=== PATIENT | male | born 1965 | race Caucasian/White ===

== ENCOUNTER 2022-12-01 09:35 | Observation (INO) ==
--- NOTE | 2022-11-27 13:58 | Anesthesiology Consultation ---
Date of Service November 27, 2022 Assessment & Plan (1) Encounter for pre-operative examination: - ER [facility] 11/24/22: "...evaluation of right knee pain. 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 He fell down when this occurred...X-ray revealed a tibial plateau fracture. CT was then ordered for further evaluation of this. Patient placed in a knee immobilizer and instructed the use of crutches..." - Per card mounter on 11/27/2022: No known infectious disease contacts, current infectious disease symptoms in past 10 days or COVID positive test result in the past 90 days. Chart Review Chart Review: Acceptable Risk for Surgery and Patient NOT seen in Pre Admission Testing History Surgery Operation Date: 12/01/22 11:30 Proposed Procedures p Open Reduction Internal Fixation of Right Tibial Plateau - Ralph Pérez MD Height/Weight Height: 5 ft 6.6 in Weight: 86.183 kg Allergies Allergy/AdvReac Type Severity Reaction Status Date / Time No Known Allergies Allergy Unverified 11/27/22 09:27 Medications Home Medications Medication Instructions Recorded Confirmed Last Taken candesartan 8 mg tablet 8 mg PO QAM 11/24/22 11/27/22 11/24/22 oxycodone-acetaminophen 5 mg-325 1 tab PO Q4H PRN pain #15 tabs 11/24/22 11/27/22 Unknown mg tablet (Percocet) rosuvastatin 10 mg tablet 10 mg PO QPM 11/24/22 11/27/22 11/23/22 oxycodone 5 mg tablet 5 - 10 mg PO Q6 PRN pain #40 tabs 11/26/22 11/27/22 Unknown Past Medical History Medical History History of anesthesia reaction "The spinal didn't work" -- ORIF LLE . HLD (hyperlipidemia) HTN (hypertension) Sleep apnea CPAP Past Surgical History Surgical History History of colonoscopy History of open reduction and internal fixation (ORIF) procedure LLE History of removal of retained hardware History of wisdom tooth extraction Social History Smoking Status: Never smoker Do You Dip or Chew Tobacco: No Hx Alcohol Use: Yes alcohol intake frequency: holidays/special occasions only Hx Substance Use: No substance use type: does not use Lab Results Anesthesia Preop Results Results Anesthesia Widget: WBC 5.29 K/ul (4.8-10.8) 11/27/22 Hgb 16.4 g/dl (14.0-18.0) 11/27/22 Hct 50.5 % (42.0-52.0) 11/27/22 Plt 195 K/uL (130-400) 11/27/22 Na 140 mmol/L (136-145) 11/27/22 K 3.9 mmol/L (3.5-5.1) 11/27/22 Cl 103 mmol/L (98-107) 11/27/22 CO2 31 mmol/L (21-32) 11/27/22 BUN 16 mg/dl (6-23) 11/27/22 Creat 0.98 mg/dl (0.6-1.4) 11/27/22 Glucose Level 144 mg/dl (70-99(Fasting)) H 11/27/22 Testing Electrocardiogram Date: 11/27/22 NSR, rate 93 bpm
[~2022-12-01 09:35] MED LIST: ACETAMINOPHEN 500 MG TAB PO SCH; BUPIVACAINE 0.5 % 5 MG/1 ML MPF 30ML VIAL ONE; EPINEPHrine INJ 1 MG/ML AMP ONE; FAMOTIDINE 20 MG TAB PO SCH; LR 15ML/HR IV SCH; LR 60ML/HR IV SCH; TRANEXAMIC ACID 1,000 MG **IV Intra-op IV SCH; ceFAZolin 2000MG 2,000 MG/15 ML SYR IV SCH; dexAMETHasone**PF** 10 MG/ML VIAL IV SCH
--- NOTE | 2022-12-01 11:01 | History & Physical Bridge Note ---
Date of Service December 01, 2022 History & Physical Bridge Note I have examined the patient, reviewed the History & Physical and in the interval since the performance of the History & Physical I have noted the following changes of clinical significance: no changes noted
[2022-12-01] MEDS ORDERED: fentaNYL citrate PF 100 MCG/2 ML VIAL ONE (11:28)
[2022-12-01] MEDS ORDERED: MIDAZOLAM HCL 1 MG/ML 2ML VIAL ONE (11:28)
[2022-12-01] MEDS ORDERED: BUPIVACAINE 0.5 % 5 MG/1 ML PF 10ML VIAL ONE (11:46)
[2022-12-01] MEDS ORDERED: BUPIVACAINE/EPINEPHRINE 0.5% MPF 1:200,000 30 ML VIAL ONE (11:59)
[2022-12-01] MEDS ORDERED: PROPOFOL IV EMULSION 10 MG/ML 20 ML VIAL IV ONE (13:15)
[2022-12-01] MEDS ORDERED: NALOXONE HCL 0.4 MG/1 ML VIAL/CARP IV PRN ×2 (14:02→15:47)
[2022-12-01] MEDS ORDERED: ONDANSETRON INJ 2 MG/ML 2 ML VIAL IV PRN ×2 (14:02→15:47)
[2022-12-01] MEDS ORDERED: ATROPINE SULFATE 0.1 MG/ML 10ML SYR IV PRN (14:02)
[2022-12-01] MEDS ORDERED: FLUMAZENIL 0.1 MG/1 ML 10 ML VIAL IV PRN (14:02)
[2022-12-01] MEDS ORDERED: ePHEDrine sulfate 50 MG/ML AMP IV PRN (14:02)
[2022-12-01] MEDS ORDERED: PROMETHAZINE HCL 12.5 MG in SODIUM CHLORIDE 0.9% 50 ML IV PRN (14:02)
[2022-12-01] MEDS ORDERED: HYDROmorphone INJ 1 MG/ML SYRINGE IV PRN (14:02)
[2022-12-01] MEDS ORDERED: LABETALOL HCL IV 5 MG/ML 20ML IV PRN (14:02)
--- NOTE | 2022-12-01 15:02 | Operative Report ---
PG Post Operative Report Pre & Post Diagnosis Operation Date: 12/01/22 11:30 Pre-Op Diagnosis: Right Schatzker 2 lateral tibial Plateau Fracture Post-Op Diagnosis: Right Schatzker 2 lateral tibial Plateau Fracture I identified the patient and participated in the time-out.: Yes Procedure Operation Date: 12/01/22 11:30 Actual Procedures p Open Reduction Internal Fixation of Right Tibial Plateau Fracture(Right) - Ralph Pérez MD Surgeon Ralph Pérez MD Roller Printer Nicola Melton PA-C Estimated Blood Loss 100 Findings Consistent with Post-Op Diagnosis Specimens None Anesthesia Type Spinal MAC Complications none Disposition Accompanied Patient To Recovery: No Indications 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 He sustained a markedly depressed the lateral split depression tibial plateau fracture. This is indicated for surgical management. Description of Procedure Operative implants consist of: 1. Synthes right 3.5 variable angle locking plate with a 6-hole shaft, 6-hole head. 2. 3.5 partially-threaded conical screws x3. 3. 3.5 cortical screws x4. 4. 3.5 variable angle locking screws x3. 5. Cancellous chips/allograft chips. The patient was taken to the operating, identified, and placed on the operating table supine position. All contractors were properly padded. IV antibiotics tried by anesthesia team. A spinal anesthetic and been implemented holding area. A right thigh turn was then placed. The right lower extremities then prepped and draped in usual sterile fashion. The right leg was elevated exsanguinated with use of an Esmarch and the tourniquet was set at 300 mmHg. An anterior lateral approach to the tibia was then performed through a curvilinear incision over the anterior lateral crest of the tibia extending up over the knee joint to right above the joint line and then angling posteriorly at about a 90 degree angle. Sharp dissection was carried through subcutaneous tissues directly through the IT band approximately in the anterior compartment fascia more distally. The anterior compartment muscles were stripped off the anterior aspect of the tibia in a subperiosteal fashion. The IT band was dissected down to expose the joint line. A submeniscal arthrotomy was then created. I did place some traction stitches in the lateral meniscus with #1 Vicryl sutures. I was able to look up into the joint quite nicely. The fracture was fairly displaced laterally was able to open this up. I then used a bone tamp to get reduced the articular surface and subchondral bone. I then placed some cancellous bone chips underneath these fragments to hold and then closed the lateral cortical fracture fragment. This was verified fluoroscopically. We had excellent bone support. I then held this with a couple K wires. I then took a Synthes anterolateral tibial periarticular locking plate. I fixed it through the oblong hole just below the joint line to support the surface. It was fixed with a single cortical screw and then 2 partially-threaded conical screws proximally followed by a additional locking screw and an additional fully threaded conical lag screw. I then placed 3 cortical screws and distally and then provided to cortical locking screws in the proximal segment of the plate closure of the joint surface. 1 of these was a acute standard kind of screw. Some final x-rays were obtained. The fracture was nicely reduced. I felt it was good as was a job we could do with excellent bony support. The knee was stable to testing. We irrigated the wound. I then repaired the lateral meniscus back to the holes in the plate with the #1 Vicryl sutures. The knee was injected with 30 cc of half percent Marcaine with epinephrine. I did let the tourniquet down for tourniquet time 81 minutes for hemostasis surgeries electrocautery. The wounds once again irrigated. The deep fascia and the IT band was then closed with 0 Vicryl suture in a [id number]-ptaeo fashion. Subcutaneous tissues then closed with 2 Dexon suture in buried knot fashion the skin was closed with 3-0 nylon suture in simple fashion. Leg was then cleaned and dried a sterile dressing was Xeroform, 4 fours, sterile cast padding Alberto bandage, knee immobilizer applied. The patient then transferred to the recovery room in stable condition. The patient tolerated procedure well and there were no complications. Nicola Melton, physician student assistant, was present for the entire procedure. His assistance was required for proper patient positioning, prepping and draping, surgical exposure, retraction, perform the technical details the operation, placement of hardware, closure of the incision site and placement of sterile bandage. I attest to the content of the Intraoperative Record and any orders documented therein. Any exceptions are noted below.
--- NOTE | 2022-12-01 15:15 | Anesthesiology Progress Note ---
Date of Service December 01, 2022 Anesthesia Post Procedure Vital Signs Vital Signs: Temp Pulse Resp BP Pulse Ox O2 Del Method O2 Flow Rate 12/01/22 15:10 36.1 C L 70 17 136/82 94 Oxymask 5 12/01/22 15:00 81 17 133/85 94 Oxymask 5 12/01/22 14:50 83 17 123/77 94 Oxymask 5 12/01/22 14:42 36.1 C L 88 17 123/77 96 Oxymask 5 12/01/22 10:16 36.7 C 83 20 137/87 96 Room Air Pain Intensity Right Leg: Pain Intensity: 3 Transfer of Care Handoff Completed per policy Notes Mental Status: alert / awake / arousable Patient Amnestic to Procedure: Yes Nausea / Vomiting: adequately controlled Pain: adequately controlled Airway Patency, RR, SpO2: stable & adequate BP & HR: stable & adequate Hydration State: stable & adequate Neuraxial Anesthesia: was administered and sensory block is resolving Anesthetic Complications: no major complications apparent
[2022-12-01] MEDS ORDERED: bisacodyL 10 MG SUPP PR PRN (15:47)
[2022-12-01] MEDS ORDERED: oxyCODONE HCL IR 5 MG TAB (IMMEDIATE RELEASE) PO PRN (15:47)
[2022-12-01] MEDS ORDERED: HYDROmorphone INJ 0.5 MG/0.5 ML SYR IV PRN (15:47)
[2022-12-01] MEDS ORDERED: METOCLOPRAMIDE HCL INJ 5 MG/ML 2 ML VIAL IV PRN (15:47)
[2022-12-01] MEDS ORDERED: MAGNESIUM HYDROXIDE SUSP 30 ML UDC PO PRN (15:47)
[2022-12-01] MEDS ORDERED: ALUMINUM/MAGNESIUM SUSP 30 ML UDC PO PRN (15:47)
[2022-12-01] MEDS ORDERED: TAMSULOSIN HCL 0.4 MG CAP PO PRN (15:47)
--- NOTE | 2022-12-01 16:18 | Fluoroscopy Report ---
FL knee RT 1 or 2V CLINICAL HISTORY: ORIF RIGHT TIBIAL PLATEAU COMPARISON STUDY: Right knee radiographs and CT of the right knee November 24, 2022. FLUOROSCOPY TIME: 49 seconds. Ka, r: 2.70 mGy FLUOROSCOPIC IMAGES: 3 FINDINGS: Fluoroscopy was provided during open reduction and internal fixation of the right lateral t ibial plateau fracture. Fracture alignment has significantly improved and appears near anatomic. Plat e and screw fixation is noted. Hardware is intact. IMPRESSION: Fluoroscopy provided during open reduction and internal fixation of the right lateral ti bial plateau fracture. ACT 112: Negative or not required by law. Electronically signed by: Ras Brown M.D. 12/01/2022 4:17 PM
[2022-12-01] MEDS: KETOROLAC 30 MG/ML VIAL IV SCH ×2 (16:22→21:02)
[2022-12-01] MEDS: SODIUM CHLORIDE 0.9% 1000ML 1,000 ML IV SCH (16:23)
[2022-12-01] MEDS: ASCORBIC ACID 500 MG TAB PO SCH (16:27)
[2022-12-01] MEDS: oxyCODONE HCL IR 5 MG TAB (IMMEDIATE RELEASE) PO PRN (20:58)
[2022-12-01] MEDS: ACETAMINOPHEN 500 MG TAB PO SCH (21:00)
[2022-12-01] MEDS ORDERED: SENNA 8.6 MG TAB PO SCH (21:00)
[2022-12-01] MEDS ORDERED: ROSUVASTATIN CALCIUM 10 MG TAB PO SCH (21:00)
[2022-12-01] MEDS: ASPIRIN 81 MG ECTAB PO SCH (21:01)
[2022-12-01] MEDS: DOCUSATE SODIUM 100 MG CAP PO SCH (21:02)
[2022-12-01] MEDS: ceFAZolin 2000MG 2,000 MG/15 ML SYR IV SCH (21:44)
[2022-12-02] MEDS: SODIUM CHLORIDE 0.9% 1000ML 1,000 ML IV SCH (02:17)
[2022-12-02] MEDS: ceFAZolin 2000MG 2,000 MG/15 ML SYR IV SCH (04:47)
[2022-12-02] MEDS: KETOROLAC 30 MG/ML VIAL IV SCH ×2 (04:47→09:25)
[2022-12-02] MEDS: oxyCODONE HCL IR 5 MG TAB (IMMEDIATE RELEASE) PO PRN (04:49)
[2022-12-02] MEDS: ACETAMINOPHEN 500 MG TAB PO SCH ×2 (04:55→11:43)
--- NOTE | 2022-12-02 07:10 | Orthopedic Progress Note ---
Date of Service December 02, 2022 Assessment & Plan (1) Fracture of tibial plateau: POD #1 s/p ORIF of tibia plateau fracture, with peroneal nerve palsy. Will discuss with Dr. Pérez today. PT/OT: Nonweight bearing RLE. Continue knee immobilizer at all times. No knee range of motion DVT prophylaxis: teds, scd's, aspirin. Subjective . 57 year old patient POD #1 from ORIF right lateral tibia plateau fracture. Knee pain is controlled. He has been having some diminished sensation in the right foot and inability to dorsiflex. This has been ongoing since surgery. No other complaints. Review of Systems All systems reviewed & are unremarkable except as noted in HPI & below. Physical Exam . alert and oriented. NAD VSS Right leg: moderate swelling around knee and lower leg. Able to do a straight leg raise. Dressing clean, dry and intact. Dressing does not feel too tight. Able to plantarflex and move his toes some. Palpable dorsalis pedic pulse. Brisk refill. Diminished sensation in foot. Unable to dorsiflex foot or great toe. Results & Data Results & Data Laboratory Results . Diagnostic Findings . PG Care Time/CCT Total # of Minutes Spent Total Time Spent with Patient: Total time spent is greater than 50% in coordination of care (as documented) at patient's floor/unit and/or counseling patient: Coding Level of Care Code 06569 Post Operative Follow-Up Diagnoses Fracture of tibial plateau S82.141A Encounter type: initial encounter Fracture type: closed Laterality: right (1) Fracture of tibial plateau Encounter type: initial encounter Fracture type: closed Laterality: right Qualified Code(s): S82.141A - Displaced bicondylar fracture of right tibia, initial encounter for closed fracture
[2022-12-02] MEDS ORDERED: MULTIVITAMIN TAB PO SCH (09:00)
[2022-12-02] MEDS ORDERED: LOSARTAN POTASSIUM 25 MG TAB PO SCH (09:00)
[2022-12-02] MEDS: ASCORBIC ACID 500 MG TAB PO SCH (09:21)
[2022-12-02] MEDS: DOCUSATE SODIUM 100 MG CAP PO SCH (09:22)
[2022-12-02] MEDS: ASPIRIN 81 MG ECTAB PO SCH (09:22)
--- NOTE | 2022-12-02 11:43 | Orthopedic Progress Note ---
Date of Service December 02, 2022 Assessment & Plan (1) Fracture of tibial plateau: Patient is postoperative day 1 from ORIF of right tibial plateau fracture. He does seem to have a bit of a peroneal nerve palsy. Does not has appear to have complete absence but appears to be weak. He is vascularly intact. His band is not too tight. Does not seem to be excessive swelling of any nature. This could be related to his anesthesia as he was very slow to recover from the spinal versus the local injection versus swelling of his anterior compartment musculature. There is no signs of a compartment syndrome or compartment issues. This somewhere just can have to observe. Plan: 1 DVT prophylaxis including thigh-high teds SCDs and aspirin twice a. 2. PT OT. He is nonweightbearing. Hold on any knee range of motion for the first 2 weeks. 3. Peroneal nerve palsy. Were just can have to observe this. His bandages not too tight. It does not appear to be a lot of swelling. I does seem to have some function but is clearly weak. I did instruct him on some stretching exercises to keep his calf is supple. 4. Disposition plan to discharge home. He will follow-up with me in 2 weeks Subjective . Is a 57-year-old gentleman postop day 1 from ORIF of right displaced tibial plateau fracture. He is doing pretty well. He continues have some numbness in his foot and a weakness with dorsiflexion. He feels like this is slowly improving. I really not much in the way of pain. Pain is manageable. No chest pain or shortness of breath. Not feeling dizzy or lightheaded. Review of Systems All systems reviewed & are unremarkable except as noted in HPI & below. Physical Exam . Physical examination the right leg reveals the knee immobilizer to be in place. Leg is well aligned. The Alberto bandage was checked and found to be excessively tight. Is got brisk refill and good distal pulse. He can plantarflex his foot appropriately. He does have a weak dorsiflexion of his toes measured at about 1 out of 5. He can invert but cannot really leave her. Results & Data Results & Data Laboratory Results . Diagnostic Findings . PG Care Time/CCT Total # of Minutes Spent Total Time Spent with Patient: Total time spent is greater than 50% in coordination of care (as documented) at patient's floor/unit and/or counseling patient: Coding Level of Care Code 95886 Post Operative Follow-Up Diagnoses Fracture of tibial plateau S82.141A Encounter type: initial encounter Fracture type: closed Laterality: right (1) Fracture of tibial plateau Encounter type: initial encounter Fracture type: closed Laterality: right Qualified Code(s): S82.141A - Displaced bicondylar fracture of right tibia, initial encounter for closed fracture
--- NOTE | 2022-12-05 14:32 | Discharge Summary ---
Date of Service December 05, 2022 Discharge Data Procedures Performed Operation Date: 12/01/22 11:30 Actual Procedures p Open Reduction Internal Fixation of Right Tibial Plateau Fracture(Right) - Ralph Pérez MD Hospital Course (1) Fracture of tibial plateau: This is a 57 year old patient admitted on 12/01/22 and underwent ORIF of a tibia plateau fracture. He tolerated the procedure well and there were no complications. Transferred to the PACU post op and later to the orthopedic floor for further care. He was given ancef for antibiotic prophylaxis. He was also given ARLENE stockings, SCDs, and aspirin for DVT prophylaxis. Hemoglobin, hematocrit, and vital signs were monitored during his hospital stay and remained stable. Did not require any blood transfusions. There were no complications during his hospital stay. He did have a peroneal nerve palsy post operatively, possibly related to spinal anesthesia or local anesthesia. By post op day #1 the patient was tolerating a regular diet, pain was reasonably controlled with oral pain medicine, and he was participating in physical therapy. On post op day #1 the patient was discharged home. He was given printed discharge instructions including prescriptions for percocet and aspirin. Should continue nonweight bearing on the right leg and avoid knee motion. Continue knee immobilizer. Follow up approximately 2 weeks post op or sooner if there are problems or concerns. Coding Level of Care Code None Diagnoses Fracture of tibial plateau S82.141A Encounter type: initial encounter Fracture type: closed Laterality: right
== END 2022-12-02 12:55 | disposition home or self-care (01) ==
LOC: 3E 09:35 → ASU 09:35
DX: S82.291A Other fracture of shaft of right tibia, initial encounter for closed fracture; W20.8XXA Other cause of strike by thrown, projected or falling object, initial encounter; Y99.0 Civilian activity done for income or pay

== ENCOUNTER 2023-10-22 19:18 | Inpatient (IN) ==
[2023-10-22] MEDS: ONDANSETRON INJ 2 MG/ML 2 ML VIAL IV STA ×2 (19:57→21:24)
[2023-10-22 20:16] LABS: Basophils # (auto) 0.06 K/uL (0.00-0.20); Basophils % (auto) 0.6 %; Eosinophils # (auto) 0.35 K/uL (0.00-0.50); Eosinophils % (auto) 3.4 %; Hematocrit (blood only) 50.7 % (42.0-52.0); Hemoglobin 16.7 g/dl (14.0-18.0); Immature Granulocytes # (auto) 0.06 K/uL (0.01-0.20); Immature Granulocytes % (auto) 0.6 %; Lymphocytes # (auto) 1.34 K/uL (1.20-3.40); Lymphocytes % (auto) 12.9 %; Mean Corpuscular Hemoglobin 28.4 pg (25.0-34.0); Mean Corpuscular Hgb Conc 32.9 g/dL (32.0-36.0); Mean Corpuscular Volume 86.1 fL (80.0-100.0); Mean Platelet Volume 9.9 fL (9.4-12.4); Monocytes # (auto) 0.97 K/uL (0.11-0.59); Monocytes % (auto) 9.4 %; Neutrophils # (auto) 7.57 K/uL (1.40-6.50); Neutrophils % (auto) 73.1 %; Platelet Count 250 K/uL (130-400); RDW Coefficient of Variation 12.7 % (11.5-14.5); RDW Standard Deviation 39.8 fL (36.4-46.3); Red Blood Count 5.89 M/uL (4.70-6.10); White Blood Count 10.35 K/ul (4.8-10.8)
[2023-10-22 20:24] LABS: Albumin Globulin Ratio 1.2 (0.9-2); Albumin Level 4.5 gm/dl (3.4-5.0); BUN Creatinine Ratio 13.7 (10-20); Bilirubin,Total 0.8 mg/dl (0.2-1.0); Calcium 9.1 mg/dl (8.6-10.3); Creatinine Clr Calc Pharmacy 89.9 ml/min; Est GFR (African American) 94.8 ml/min; Est GFR (Non-African American) 81.8 ml/min; Globulin 3.9 gm/dl (2.5-4.0); Total Protein 8.4 gm/dl (6.0-8.3)
[2023-10-22] MEDS: FAMOTIDINE 20MG IV PUSH 20 MG/5 ML SYR IV STA (21:24)
[2023-10-22] MEDS: SODIUM CHLORIDE 0.9% 1,000 ML IV ONE ×2 (21:24→22:25)
[2023-10-22] MEDS: OPTIRAY 320 100ml IV ONE (22:15)
[2023-10-22] MEDS: MoRPHine SULFATE 10 MG/ML CARP/VIAL IV STA (22:24)
--- NOTE | 2023-10-22 22:27 | Emergency Department Note ---
Impression & Plan Superior mesenteric vein thrombosis, Abdominal pain, Acute thrombosis of splenic vein, BRBPR (bright red blood per rectum) ED Provider Note NAME: LISA RAMÍREZ AGE: 58 SEX: M : 1965 ARRIVES VIA: Walk-In INFORMANT: Patient ED PROVIDER(S): Harish Guzman DO CHIEF COMPLAINT: Abdominal pain HPI: Patient is a 58-year-old male with a past medical history of renal colic and hyperlipidemia that presents to the ER for abdominal pain. Symptoms initially started this past Wednesday with nausea and diarrhea. V the vomiting just started today. Last bowel movement did have bright red blood present. Denies any dysuria, urgency, or frequency. No headache or change in vision. No chest pain or shortness of breath. He notes that the pain is worse on the right side but diffuse. He denies any alcohol abuse. No previous blood clots. No recent surgery, coughing up blood, urinating blood or vomiting blood. ADDITIONAL HISTORY OBTAINED: Additional history obtained from who is present bedside who notes that he is having severe pain Chronic Medical/Social Conditions Affecting Care: Per HPI PAST MEDICAL HISTORY:See Below PAST SURGICAL HISTORY:See Below FAMILY HISTORY:See Below SOCIAL HISTORY:See Below HOME MEDICATIONS:See Below ALLERGIES:See Below VITALS:See Below PHYSICAL EXAMINATION: GENERAL: Sitting up in bed, alert, moderate distress holding his abdomen EYE EXAM: normal conjunctiva. PERRL and EOM's grossly intact. OROPHARYNX: mucous membranes are moist NECK: supple, no nuchal rigidity, no adenopathy, non-tender LUNGS: Clear to auscultation. Normal chest wall mechanics HEART: no murmurs, S1 normal and S2 normal ABDOMEN: abdomen soft, diffusely tender to palpation, normo-active bowel sounds, no masses, no rebound or guarding. UPPER EXTREMITIES: upper extremities are grossly normal. LOWER EXTREMITIES: No pitting edema. NEURO EXAM: Normal sensorium, cranial nerves II-XII grossly intact, normal speech, no gross weakness of arms, no gross weakness of legs. MEDICAL DECISION MAKING: Patient is a 58-year-old male who presents to the ER for the above-stated complaint. IV was established blood work was obtained. Labs show no significant leukocytosis or anemia. BMP with a slightly low glucose at 125. LFTs and magnesium are unremarkable. Lactic acid was normal. Troponin was negative. Lipase was normal. He denies any chest pain or shortness of breath. UA was clean. Patient was typed and crossed. CT abdomen pelvis was obtained and showed a SMV occlusion as well has small bowel edema in combination with splenic vein thrombosis. This was discussed with Dr. Fall who recommended admission and heparin drip and bolus. I discussed case presentation and workup including the bright red blood and he believes that this likely from sloughing of the bowel and recommended heparin. I did discuss case with Dr. Valladares for further evaluation management treatment. Consults/Care Managements Discussions: Per [facility] Triage Nursing notes reviewed. Limited review of prior medical records performed Vital Signs: reviewed and remarkable for HTN and tachy Differential diagnosis: Differential diagnoses includes but is not limited to gastritis, peptic ulcer disease, GERD, gallbladder disease, pancreatitis, small bowel obstruction, appendicitis, diverticulitis, hernia, urinary tract infection, torsion, perforation, trauma, infectious. ER treatment provided: See below Diagnostics interpreted by me include EKG and cardiac monitoring as listed below: -Cardiac Monitoring: An order was placed for continuous cardiac monitoring. The monitor shows a rate of 90 with sinus rhythm. -ECG: Sinus rhythm rate of 108 Normal axis No PVCs QTc 447 -Laboratory studies:Interpreted by me as stated above in MDM and shown below. Imaging studies: Xrays: As interpreted by me: Portable AP upright 1 view of the chest shows no focal infiltrate CTs show: CT abdomen pelvis as described above Procedures:none Critical Care: I have personally spent 35 minutes of critical care time in the direct management of this patient. This includes bedside care, interpretation of diagnostic studies, and testing, discussion with consultants, patient, and family members, and other required patient management activities. This 35 minutes is in excess of all separately billable procedures. Past Med/Surg History Problem List (Updated 10/23/23 @ 01:00 by Harish Guzman DO) BRBPR (bright red blood per rectum) (Acute) Acute thrombosis of splenic vein (Acute) Abdominal pain (Acute) Superior mesenteric vein thrombosis (Acute) Fracture of right tibial plateau Hypercholesteremia Renal colic (Acute) Medical History Fracture of right tibial plateau Encounter for pre-operative examination History of anesthesia reaction HLD (hyperlipidemia) HTN (hypertension) Sleep apnea Surgical History History of wisdom tooth extraction History of removal of retained hardware History of open reduction and internal fixation (ORIF) procedure History of colonoscopy Social History Smoking Status: Never smoker Second Hand Exposure: No; Do You Dip or Chew Tobacco: No; Hx Alcohol Use: Yes Hx Substance Use: No Preferred Language: Hungarian Communication Ability: Effective Nurseryman Assistant Required: No Beliefs That Will Affect Care: None Current Living Situation: Spouse Feels Safe at Home: Yes Assistive Devices: CPAP and Crutches Allergies Allergies Allergy/AdvReac Type Severity Reaction Status Date / Time No Known Allergies Allergy Verified 10/22/23 23:32 Home Meds Home Medications Medication Instructions Recorded Confirmed candesartan 8 mg tablet 8 mg PO QAM 11/24/22 10/22/23 rosuvastatin 10 mg tablet 10 mg PO DAILY 11/24/22 10/22/23 acetaminophen 500 mg tablet 500 mg PO Q8H PRN PAIN/FEVER 10/22/23 10/22/23 (Tylenol Extra Strength) aspirin 81 mg tablet,delayed 81 mg PO DAILY 10/22/23 10/22/23 release multivitamin 1 tab PO DAILY 10/22/23 10/22/23 Results & Data (ED) Vital Signs Vital Signs - 24 hr 10/22/23 19:20 10/22/23 21:27 10/22/23 21:45 Temperature 36.4 C L 37.2 C Temperature Source Temporal Artery Scan Oral Pulse Rate 120 H 92 H Pulse Rate [Finger] 94 H Pulse Rate from SpO2 Sensor Pulse Rhythm [Finger] Respiratory Rate 16 24 Respiratory Effort / Characteristics Non-Labored Spontaneous Respiratory Depth Normal Respiratory Pattern Regular Blood Pressure 177/101 H Blood Pressure [Right Arm] 161/107 H Blood Pressure Mean 126 Blood Pressure Mean [Right Arm] 125 Pulse Oximetry 95 95 Oxygen Delivery Method Room Air Room Air Oxygen Flow Rate Sepsis Recent Fever Within 48 Hours No Sepsis New/Unexplained Change in Mental Status No Sepsis Action Taken by Nursing No Action Required 10/22/23 21:48 10/22/23 22:06 10/22/23 22:26 Temperature Temperature Source Pulse Rate 97 H 86 Pulse Rate [Finger] 102 H Pulse Rate from SpO2 Sensor 96 H 93 H Pulse Rhythm [Finger] Respiratory Rate 22 15 31 H Respiratory Effort / Characteristics Respiratory Depth Respiratory Pattern Blood Pressure Blood Pressure [Right Arm] 177/117 H Blood Pressure Mean Blood Pressure Mean [Right Arm] 137 Pulse Oximetry 94 91 97 Oxygen Delivery Method Room Air Room Air Room Air Oxygen Flow Rate Sepsis Recent Fever Within 48 Hours Sepsis New/Unexplained Change in Mental Status Sepsis Action Taken by Nursing 10/22/23 22:33 10/22/23 23:12 10/22/23 23:36 Temperature Temperature Source Pulse Rate 93 H 94 H 93 H Pulse Rate [Finger] Pulse Rate from SpO2 Sensor 93 H 95 H 95 H Pulse Rhythm [Finger] Respiratory Rate 20 21 18 Respiratory Effort / Characteristics Respiratory Depth Respiratory Pattern Blood Pressure 192/116 H Blood Pressure [Right Arm] Blood Pressure Mean 141 Blood Pressure Mean [Right Arm] Pulse Oximetry 95 95 95 Oxygen Delivery Method Room Air Room Air Room Air Oxygen Flow Rate Sepsis Recent Fever Within 48 Hours Sepsis New/Unexplained Change in Mental Status Sepsis Action Taken by Nursing 10/23/23 00:02 10/23/23 00:03 10/23/23 00:08 Temperature Temperature Source Pulse Rate 91 H 89 Pulse Rate [Finger] 85 Pulse Rate from SpO2 Sensor Pulse Rhythm [Finger] Regular Respiratory Rate 25 H 21 Respiratory Effort / Characteristics Non-Labored Spontaneous Respiratory Depth Normal Respiratory Pattern Regular Blood Pressure 209/136 H 209/136 H Blood Pressure [Right Arm] 217/143 H Blood Pressure Mean 160 Blood Pressure Mean [Right Arm] 167 Pulse Oximetry 97 98 Oxygen Delivery Method Nasal Cannula Nasal Cannula Oxygen Flow Rate 2 2 Sepsis Recent Fever Within 48 Hours Sepsis New/Unexplained Change in Mental Status Sepsis Action Taken by Nursing 10/23/23 00:09 10/23/23 00:18 10/23/23 00:21 Temperature Temperature Source Pulse Rate 84 91 H 87 Pulse Rate [Finger] Pulse Rate from SpO2 Sensor 84 91 H Pulse Rhythm [Finger] Respiratory Rate 20 25 H Respiratory Effort / Characteristics Respiratory Depth Respiratory Pattern Blood Pressure 210/135 H 153/107 H 153/107 H Blood Pressure [Right Arm] Blood Pressure Mean 160 122 Blood Pressure Mean [Right Arm] Pulse Oximetry 98 94 Oxygen Delivery Method Nasal Cannula Nasal Cannula Oxygen Flow Rate 2 2 Sepsis Recent Fever Within 48 Hours Sepsis New/Unexplained Change in Mental Status Sepsis Action Taken by Nursing 10/23/23 00:36 10/23/23 00:45 Temperature Temperature Source Pulse Rate 87 86 Pulse Rate [Finger] Pulse Rate from SpO2 Sensor 86 86 Pulse Rhythm [Finger] Respiratory Rate 23 21 Respiratory Effort / Characteristics Respiratory Depth Respiratory Pattern Blood Pressure 163/105 H 166/104 H Blood Pressure [Right Arm] Blood Pressure Mean 124 124 Blood Pressure Mean [Right Arm] Pulse Oximetry 96 94 Oxygen Delivery Method Nasal Cannula Nasal Cannula Oxygen Flow Rate 2 2 Sepsis Recent Fever Within 48 Hours Sepsis New/Unexplained Change in Mental Status Sepsis Action Taken by Nursing Laboratory Data 10/22/23 19:55 10/22/23 19:55 Lab Results 10/22/23 10/22/23 10/22/23 Range/Units 19:55 22:00 23:20 WBC 10.35 (4.8-10.8) K/ul RBC 5.89 (4.70-6.10) M/uL Hgb 16.7 (14.0-18.0) g/dl Hct 50.7 (42.0-52.0) % MCV 86.1 (80.0-100.0) fL MCH 28.4 (25.0-34.0) pg MCHC 32.9 (32.0-36.0) g/dL RDW Std Deviation 39.8 (36.4-46.3) fL RDW Coeff of [place] 12.7 (11.5-14.5) % Plt Count 250 (130-400) K/uL MPV 9.9 (9.4-12.4) fL Immature Gran % (Auto) 0.6 % Neut % (Auto) 73.1 % Lymph % (Auto) 12.9 % [place] % (Auto) 9.4 % Eos % (Auto) 3.4 % Baso % (Auto) 0.6 % Neut # (Auto) 7.57 H (1.40-6.50) K/uL Lymph # (Auto) 1.34 (1.20-3.40) K/uL [place] # (Auto) 0.97 H (0.11-0.59) K/uL Eos # (Auto) 0.35 (0.00-0.50) K/uL Baso # (Auto) 0.06 (0.00-0.20) K/uL Immature Gran # (Auto) 0.06 (0.01-0.20) K/uL APTT 27 (21-31) Seconds PTT Ratio 1.0 Sodium 138 (136-145) mmol/L Potassium 4.0 (3.5-5.1) mmol/L Chloride 103 (98-107) mmol/L Carbon Dioxide 28 (21-32) mmol/L Anion Gap 7 (3-11) BUN 14 (6-23) mg/dl Creatinine 1.02 (0.6-1.4) mg/dl Est Cr Clr Drug Dosing 89.9 ml/min Est GFR ( Amer) 94.8 ml/min Est GFR (Non-Af Amer) 81.8 ml/min BUN/Creatinine Ratio 13.7 (10-20) Glucose 125 H (70-99(Fasting)) mg/dl Lactate 1.4 (0.4-2.0) mmol/L Calcium 9.1 (8.6-10.3) mg/dl Magnesium 1.7 (1.7-2.4) mg/dl Total Bilirubin 0.8 (0.2-1.0) mg/dl AST 40 H (13-39) U/L ALT 44 (7-52) U/L Alkaline Phosphatase 88 (34-104) U/L Troponin I High Sens 5.4 (0-20) pg/ml Total Protein 8.4 H (6.0-8.3) gm/dl Albumin 4.5 (3.4-5.0) gm/dl Globulin 3.9 (2.5-4.0) gm/dl Albumin/Globulin Ratio 1.2 (0.9-2) Lipase 39 (11-82) U/L Urine Color Dark Yellow Urine Appearance Clear (Clear) Urine pH 5.0 (4.5-7.5) Ur Specific Cable 1.031 H (1.000-1.030) Urine Protein 3+ H (Negative) Urine Glucose (UA) Negative (Negative) Urine Ketones 2+ H (Negative) Urine Blood Negative (Negative) Urine Nitrite Negative (Negative) Urine Bilirubin Negative (Negative) Urine Urobilinogen Negative (Negative) Ur Leukocyte Esterase Negative (Negative) Urine WBC (Auto) 0-5 (0-5) /hpf Urine RBC (Auto) 0-2 (0-2) /hpf U Hyaline Cast (Auto) 6-10 H (0-2) /lpf U Epithel Cells (Auto) 0-2 (0-2) /hpf Urine Bacteria (Auto) None Seen (None Seen) Hyaline Casts Present A (None Presnt) /lpf Blood Type Antibody Screen Crossmatch 10/22/23 Range/Units 23:33 WBC (4.8-10.8) K/ul RBC (4.70-6.10) M/uL Hgb (14.0-18.0) g/dl Hct (42.0-52.0) % MCV (80.0-100.0) fL MCH (25.0-34.0) pg MCHC (32.0-36.0) g/dL RDW Std Deviation (36.4-46.3) fL RDW Coeff of [place] (11.5-14.5) % Plt Count (130-400) K/uL MPV (9.4-12.4) fL Immature Gran % (Auto) % Neut % (Auto) % Lymph % (Auto) % [place] % (Auto) % Eos % (Auto) % Baso % (Auto) % Neut # (Auto) (1.40-6.50) K/uL Lymph # (Auto) (1.20-3.40) K/uL [place] # (Auto) (0.11-0.59) K/uL Eos # (Auto) (0.00-0.50) K/uL Baso # (Auto) (0.00-0.20) K/uL Immature Gran # (Auto) (0.01-0.20) K/uL APTT (21-31) Seconds PTT Ratio Sodium (136-145) mmol/L Potassium (3.5-5.1) mmol/L Chloride (98-107) mmol/L Carbon Dioxide (21-32) mmol/L Anion Gap (3-11) BUN (6-23) mg/dl Creatinine (0.6-1.4) mg/dl Est Cr Clr Drug Dosing ml/min Est GFR ( Amer) ml/min Est GFR (Non-Af Amer) ml/min BUN/Creatinine Ratio (10-20) Glucose (70-99(Fasting)) mg/dl Lactate (0.4-2.0) mmol/L Calcium (8.6-10.3) mg/dl Magnesium (1.7-2.4) mg/dl Total Bilirubin (0.2-1.0) mg/dl AST (13-39) U/L ALT (7-52) U/L Alkaline Phosphatase (34-104) U/L Troponin I High Sens (0-20) pg/ml Total Protein (6.0-8.3) gm/dl Albumin (3.4-5.0) gm/dl Globulin (2.5-4.0) gm/dl Albumin/Globulin Ratio (0.9-2) Lipase (11-82) U/L Urine Color Urine Appearance (Clear) Urine pH (4.5-7.5) Ur Specific Cable (1.000-1.030) Urine Protein (Negative) Urine Glucose (UA) (Negative) Urine Ketones (Negative) Urine Blood (Negative) Urine Nitrite (Negative) Urine Bilirubin (Negative) Urine Urobilinogen (Negative) Ur Leukocyte Esterase (Negative) Urine WBC (Auto) (0-5) /hpf Urine RBC (Auto) (0-2) /hpf U Hyaline Cast (Auto) (0-2) /lpf U Epithel Cells (Auto) (0-2) /hpf Urine Bacteria (Auto) (None Seen) Hyaline Casts (None Presnt) /lpf Blood Type B Positive Antibody Screen NEGATIVE Crossmatch See Detail Administered Medications Heparin Sodium/Dextrose (Heparin Sodium/Dextrose) 25,000 units in 500 mls @ 19 mls/hr IV .Q24H ZITA; Protocol Stop: 11/21/23 23:44 Last Admin: 10/23/23 00:03 Dose: 950 units/hr, 19 mls/hr Documented By: PIERCE Co-signed By: MARIANGEL Discontinued Medications Heparin Sodium (Porcine) (Heparin Sod (Porcine) 1000 Unit/Ml) 1 units IV NOW ONE Stop: 10/22/23 23:22 Last Admin: 10/22/23 23:43 Dose: Not Given Documented By: MARIANGEL Heparin Sodium/Dextrose (Heparin Iv Adult Wt-Based Standard W/ Initial Bolus Protocol) 1 each IV NOW STA; Protocol Stop: 10/22/23 23:06 Last Admin: 10/22/23 23:49 Dose: Not Given Documented By: MARIANGEL Heparin Sodium/Dextrose (Heparin Iv Adult Wt-Based Low-Dose *No* Initial Bolus Protocol) 1 each IV ONE STA; Protocol Stop: 10/22/23 23:36 Last Admin: 10/23/23 00:06 Dose: Not Given Documented By: PIERCE Hydromorphone HCl (Hydromorphone Inj 1 Mg/Ml Syringe) 1 mg IV NOW STA Stop: 10/23/23 00:08 Last Admin: 10/23/23 00:12 Dose: 1 mg Documented By: MARIANGEL Sodium Chloride (Nss) 1,000 mls @ 999 mls/hr IV .Q1H1M ONE Stop: 10/22/23 22:12 Last Infusion: 10/22/23 23:01 Dose: Infused Documented By: Admin: 10/22/23 21:24 Dose: 999 mls/hr Documented By: MARIANGEL Famotidine (Pepcid 20mg Iv Push) 20 mg in 5 mls @ 2.5 mls/min IV NOW STA Stop: 10/22/23 21:16 Last Admin: 10/22/23 21:24 Dose: 2.5 mls/min Documented By: MARIANGEL Sodium Chloride (Nss) 1,000 mls @ 999 mls/hr IV .Q1H1M ONE Stop: 10/22/23 23:05 Last Infusion: 10/23/23 00:21 Dose: Infused Documented By: Admin: 10/22/23 22:25 Dose: 999 mls/hr Documented By: GUILLERMO Piperacillin Sod/Tazobactam Sod (Zosyn) 4.5 gm in 100 mls @ 200 mls/hr IV NOW ONE Stop: 10/22/23 23:34 Last Infusion: 10/22/23 23:42 Dose: Infused Documented By: Admin: 10/22/23 23:14 Dose: 200 mls/hr Documented By: MARIANGEL Heparin Sodium/Dextrose (Heparin Sodium/Dextrose) 25,000 units in 500 mls @ 0.02 mls/hr IV .Q24H [facility]; Protocol Stop: 11/21/23 23:29 Last Admin: 10/22/23 23:42 Dose: Not Given Documented By: MARIANGEL Ioversol (Optiray 320 100ml) 92 ml IV ONCE ONE Stop: 10/22/23 22:16 Last Admin: 10/22/23 22:15 Dose: 92 ml Documented By: LEIA Metoprolol Tartrate (Metoprolol Tartrate 1 Mg/Ml Vial) 2.5 mg IV NOW STA Stop: 10/22/23 23:30 Last Admin: 10/23/23 00:02 Dose: 2.5 mg Documented By: PIERCE Morphine Sulfate (Morphine Sulfate 10 Mg/Ml Carp/Vial) 6 mg IV NOW STA Stop: 10/22/23 22:06 Last Admin: 10/22/23 22:24 Dose: 6 mg Documented By: GUILLERMO Ondansetron HCl (Ondansetron Inj 2 Mg/Ml 2 Ml Vial) 4 mg IV NOW STA Stop: 10/22/23 19:47 Last Admin: 10/22/23 19:57 Dose: 4 mg Documented By: ERIC Ondansetron HCl (Ondansetron Inj 2 Mg/Ml 2 Ml Vial) 4 mg IV NOW STA Stop: 10/22/23 21:16 Last Admin: 10/22/23 21:24 Dose: 4 mg Documented By: MARIANGEL Imaging Data Radiologist's Impression: Abdomen/Pelvis CT 10/22/23 22:05 CR Exam(s): CT ABDOMEN + PELVIS With Contrast IV Amt: 92 cc opti 320 EXAM: CT Abdomen and Pelvis With Intravenous Contrast CLINICAL HISTORY: Reason for exam: abd pain n/d/v. TECHNIQUE: Axial computed tomography images of the abdomen and pelvis with intravenous contrast. CTDI is 27.58 mGy and DLP is 1456.04 mGy-cm. Automated exposure control was utilized for the study. A dose lowering technique was utilized adhering to the principles of ALARA. CONTRAST: Patient received 92 cc Optiray 320 of IV contrast COMPARISON: January 14, 2016 FINDINGS: Lung bases: Unremarkable. No mass. No consolidation. ABDOMEN: Liver: Unremarkable. No mass. Gallbladder and bile ducts: Unremarkable. No calcified stones. No ductal dilation. Pancreas: Unremarkable. No mass. No ductal dilation. Spleen: Unremarkable. No splenomegaly. Adrenals: Unremarkable. No mass. Kidneys and ureters: Unremarkable. No solid mass. No hydronephrosis. Stomach and bowel: There is wall thickening and mild edema involving several loops of small bowel in the right lower quadrant. Diverticulosis of the sigmoid colon without evidence of acute diverticulitis. No obstruction. PELVIS: Appendix: No findings to suggest acute appendicitis. Bladder: Unremarkable. No mass. Reproductive: Unremarkable as visualized. ABDOMEN and PELVIS: Intraperitoneal space: There is a small amount of free fluid in the abdomen. No free air. Bones/joints: No acute fracture. No dislocation. Soft tissues: Unremarkable. Vasculature: There is edema surrounding a thrombosed superior mesenteric vein. Small amount nonocclusive thrombus in the splenic vein. The portal vein is widely patent. No abdominal aortic aneurysm. Lymph nodes: Unremarkable. No enlarged lymph nodes. IMPRESSION: 1. There is wall thickening and mild edema involving several loops of small bowel in the right lower quadrant. There is edema surrounding an acutely the thrombosed superior mesenteric vein. 2. Small amount nonocclusive thrombus in the splenic vein. The portal vein is widely patent. Communications: Call Doctor Above results Electronically signed by: Merrill Pérez MD 10/22/23 22:45 PM Discharge Plan Visit Data Chief Complaint: Nausea ED Provider: Harish Guzman Discharge Problem: Superior mesenteric vein thrombosis, Abdominal pain, Acute thrombosis of splenic vein, BRBPR (bright red blood per rectum) Forms Stand Alone Forms: [facility] Prescriptions Prescriptions: No Action candesartan 8 mg tablet 8 mg PO QAM rosuvastatin 10 mg tablet 10 mg PO DAILY multivitamin Tablet 1 tab PO DAILY aspirin 81 mg Tablet,Delayed Release (Dr/Ec) 81 mg PO DAILY acetaminophen [Tylenol Extra Strength] 500 mg Tablet 500 mg PO Q8H PRN (Reason: PAIN/FEVER) Referrals Referrals: Julius Lowry MD [Primary Care Provider] - Discharge Problem: Abdominal pain Qualifiers: Abdominal location: unspecified location Qualified Code(s): R10.9 - Unspecified abdominal pain
[2023-10-22 22:31] LABS: Appearance Urine Clear (Clear); Bacteria Urine Automated None Seen (None Seen); Bilirubin Urine Negative (Negative); Blood Urine Negative (Negative); Color Urine Dark Yellow; Epithelial Cell Urine Auto 0-2 /hpf (0-2); Glucose Urine UA Negative (Negative); Hyaline Casts Urine Present /lpf (None Presnt); Ketones Urine 2+ (Negative); Leukocyte Esterase Urine Negative (Negative); Nitrite Urine Negative (Negative); Protein Urine 3+ (Negative); RBC Urine Automated 0-2 /hpf (0-2); Specific Gravity Urine 1.031 (1.000-1.030); Urobilinogen Urine Negative (Negative); WBC Urine Automated 0-5 /hpf (0-5)
--- NOTE | 2023-10-22 22:45 | CT Scan Report ---
Exam(s): CT ABDOMEN + PELVIS With Contrast IV Amt: 92 cc opti 320 EXAM: CT Abdomen and Pelvis With Intravenous Contrast CLINICAL HISTORY: Reason for exam: abd pain n/d/v. TECHNIQUE: Axial computed tomography images of the abdomen and pelvis with intravenous contrast. CTDI is 27.58 mGy and DLP is 1456.04 mGy-cm. Automated exposure control was utilized for the study. A dose lowering technique was utilized adhering to the principles of ALARA. CONTRAST: Patient received 92 cc Optiray 320 of IV contrast COMPARISON: January 14, 2016 FINDINGS: Lung bases: Unremarkable. No mass. No consolidation. ABDOMEN: Liver: Unremarkable. No mass. Gallbladder and bile ducts: Unremarkable. No calcified stones. No ductal dilation. Pancreas: Unremarkable. No mass. No ductal dilation. Spleen: Unremarkable. No splenomegaly. Adrenals: Unremarkable. No mass. Kidneys and ureters: Unremarkable. No solid mass. No hydronephrosis. Stomach and bowel: There is wall thickening and mild edema involving several loops of small bowel in the right lower quadrant. Diverticulosis of the sigmoid colon without evidence of acute diverticulitis. No obstruction. PELVIS: Appendix: No findings to suggest acute appendicitis. Bladder: Unremarkable. No mass. Reproductive: Unremarkable as visualized. ABDOMEN and PELVIS: Intraperitoneal space: There is a small amount of free fluid in the abdomen. No free air. Bones/joints: No acute fracture. No dislocation. Soft tissues: Unremarkable. Vasculature: There is edema surrounding a thrombosed superior mesenteric vein. Small amount nonocclusive thrombus in the splenic vein. The portal vein is widely patent. No abdominal aortic aneurysm. Lymph nodes: Unremarkable. No enlarged lymph nodes. IMPRESSION: 1. There is wall thickening and mild edema involving several loops of small bowel in the right lower quadrant. There is edema surrounding an acutely the thrombosed superior mesenteric vein. 2. Small amount nonocclusive thrombus in the splenic vein. The portal vein is widely patent. Communications: Call Doctor Above results Electronically signed by: Merrill Pérez MD 10/22/23 22:45 PM
[2023-10-22] MEDS ORDERED: SODIUM CHLORIDE 0.9% 250 ML IV PRN (23:09)
[2023-10-22] MEDS: PIPERACILLIN/TAZOBACTAM 4.5 GM/100 ML BAG IV ONE (23:14)
[2023-10-22 23:16] LABS: Troponin I High Sensitivity 5.4 pg/ml (0-20)
[2023-10-22] MEDS: HEPARIN SODIUM/DEXTROSE 25,000 UNITS/500 ML BAG IV SCH (23:42)
[2023-10-22] MEDS: HEPARIN SOD (PORCINE) 1000 UNIT/ML IV ONE (23:43)
[2023-10-22] MEDS: Heparin IV Adult Wt-Based Standard w/ INITIAL Bolus Protocol IV STA (23:49)
[2023-10-22 23:52] LABS: Partial Thromboplastin Time 27 Seconds (21-31)
[2023-10-23] MEDS: METOPROLOL TARTRATE 1 MG/ML VIAL IV STA (00:02)
[2023-10-23] MEDS: HEPARIN SODIUM/DEXTROSE 25,000 UNITS/500 ML BAG IV SCH (00:03)
[2023-10-23] MEDS: Heparin IV Adult Wt-Based Low-Dose *NO* INITIAL Bolus Protocol IV STA (00:06)
--- NOTE | 2023-10-23 00:07 | History & Physical Report ---
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 Fall who recommends bowel rest, antibiotics and anticoagulation) Check hemoglobin A1c DVT prophylaxis. Heparin Full code Patient requesting updates providers. Ms. Joanne Carrion, contact #[phone]. Text document was generated using [employer] voice recognition software. It may contain grammatical or spelling errors. Kindly contact undersigned for clarification of any documentation item in question. History of Present Illness Chief Complaint: Abdominal pain, hematochezia Primary Care Provider: Julius Lowry MD History obtained from patient, family, and records. Medical history significant for hypertension, hyperlipidemia, NAFLD, HODAN on CPAP. 1 week history of alternating diarrhea, constipation symptoms. No fever, no chills. Not sure about sick contacts. No recent antibiotic Rx except for doxycycline course for tickborne infection 3 months ago. Intermittent achy central abdominal pain with days where he would actually be pain-free. Last night, patient experienced recurrence of abdominal discomfort followed by bloody BM. No headache, no chest pain, no SOB. No previous episodes. CT abdomen pelvis showed 1. There is wall thickening and mild edema involving several loops of small bowel in the right lower quadrant. There is edema surrounding an acutely the thrombosed superior mesenteric vein. 2. Small amount nonocclusive thrombus in the splenic vein. The portal vein is widely patent. IV Zosyn and heparin initiated at the ER. Highest SBP of 210s documented at the ER. 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 Allergies Allergy/AdvReac Type Severity Reaction Status Date / Time No Known Allergies Allergy Verified 10/22/23 23:32 Home Medications Medication Instructions Recorded Confirmed Type candesartan 8 mg tablet 8 mg PO QAM 11/24/22 10/22/23 History rosuvastatin 10 mg tablet 10 mg PO DAILY 11/24/22 10/22/23 History acetaminophen 500 mg tablet 500 mg PO Q8H PRN PAIN/FEVER 10/22/23 10/22/23 History (Tylenol Extra Strength) aspirin 81 mg tablet,delayed 81 mg PO DAILY 10/22/23 10/22/23 History release multivitamin 1 tab PO DAILY 10/22/23 10/22/23 History Past Med/Surg History Problem List (Updated 10/23/23 @ 01:27 by Morris Woods MD) Hypertensive crisis BRBPR (bright red blood per rectum) (Acute) Acute thrombosis of splenic vein (Acute) Abdominal pain (Acute) Superior mesenteric vein thrombosis (Acute) Fracture of right tibial plateau Hypercholesteremia Renal colic (Acute) Medical History Fracture of right tibial plateau Encounter for pre-operative examination History of anesthesia reaction HLD (hyperlipidemia) HTN (hypertension) Sleep apnea Surgical History History of wisdom tooth extraction History of removal of retained hardware History of open reduction and internal fixation (ORIF) procedure History of colonoscopy Social History Smoking Status: Never smoker Second Hand Exposure: No; Do You Dip or Chew Tobacco: No; Hx Alcohol Use: Yes Alcohol type: hard liquor Hx Substance Use: No Preferred Language: Libyan Communication Ability: Effective Production Stage Manager Required: No Beliefs That Will Affect Care: None Current Living Situation: Spouse and Family Feels Safe at Home: Yes Safety Concerns: Feels Safe At This Time Assistive Devices: CPAP and Glasses Review of Systems Review of Systems: As per HPI, all other systems reviewed and negative Physical Exam Physical Exam: GENERAL: uncomfortable, obese, no respiratory distress SKIN: Normal color, warm HEENT: [place] palpebral conjunctivae, no ptosis, dry buccal mucosa NECK : Supple, short neck, no tenderness CHEST : CTA, no tenderness HEART : RRR, no obvious murmurs ABDOMEN: Some distention, central abdominal tenderness EXTREMITIES : No LE swelling/tenderness, no other conspicuous deformities noted NEUROLOGIC : Coherent, no facial asymmetry, no other gross focality Results & Data Results & Data Vital Signs (Past 12 Hours) Vital Signs Temp Pulse Pulse Resp BP BP Pulse Ox 10/23/23 00:02 91 H 209/136 H 10/22/23 23:36 93 H 18 192/116 H 95 10/22/23 23:12 94 H 21 95 10/22/23 22:33 93 H 20 95 10/22/23 22:26 102 H 31 H 177/117 H 97 10/22/23 22:06 86 15 91 10/22/23 21:48 97 H 22 94 10/22/23 21:45 92 H 10/22/23 21:27 37.2 C 94 H 24 161/107 H 95 10/22/23 19:20 36.4 C L 120 H 16 177/101 H 95 O2 Del Method 10/23/23 00:02 10/22/23 23:36 Room Air 10/22/23 23:12 Room Air 10/22/23 22:33 Room Air 10/22/23 22:26 Room Air 10/22/23 22:06 Room Air 10/22/23 21:48 Room Air 10/22/23 21:45 10/22/23 21:27 Room Air 10/22/23 19:20 Room Air Laboratory Results Laboratory Results WBC 10.35 K/ul (4.8-10.8) 10/22/23 19:55 RBC 5.89 M/uL (4.70-6.10) 10/22/23 19:55 Hgb 16.7 g/dl (14.0-18.0) 10/22/23 19:55 Hct 50.7 % (42.0-52.0) 10/22/23 19:55 MCV 86.1 fL (80.0-100.0) 10/22/23 19:55 MCH 28.4 pg (25.0-34.0) 10/22/23 19:55 MCHC 32.9 g/dL (32.0-36.0) 10/22/23 19:55 RDW Std Deviation 39.8 fL (36.4-46.3) 10/22/23 19:55 RDW Coeff of [place] 12.7 % (11.5-14.5) 10/22/23 19:55 Plt Count 250 K/uL (130-400) 10/22/23 19:55 MPV 9.9 fL (9.4-12.4) 10/22/23 19:55 Immature Gran % (Auto) 0.6 % 10/22/23 19:55 Neut % (Auto) 73.1 % 10/22/23 19:55 Lymph % (Auto) 12.9 % 10/22/23 19:55 Gillespie % (Auto) 9.4 % 10/22/23 19:55 Eos % (Auto) 3.4 % 10/22/23 19:55 Baso % (Auto) 0.6 % 10/22/23 19:55 Neut # (Auto) 7.57 K/uL (1.40-6.50) H 10/22/23 19:55 Lymph # (Auto) 1.34 K/uL (1.20-3.40) 10/22/23 19:55 Gillespie # (Auto) 0.97 K/uL (0.11-0.59) H 10/22/23 19:55 Eos # (Auto) 0.35 K/uL (0.00-0.50) 10/22/23 19:55 Baso # (Auto) 0.06 K/uL (0.00-0.20) 10/22/23 19:55 Immature Gran # (Auto) 0.06 K/uL (0.01-0.20) 10/22/23 19:55 APTT 27 Seconds (21-31) 10/22/23 19:55 PTT Ratio 1.0 10/22/23 19:55 Sodium 138 mmol/L (136-145) 10/22/23 19:55 Potassium 4.0 mmol/L (3.5-5.1) 10/22/23 19:55 Chloride 103 mmol/L (98-107) 10/22/23 19:55 Carbon Dioxide 28 mmol/L (21-32) 10/22/23 19:55 Anion Gap 7 (3-11) 10/22/23 19:55 BUN 14 mg/dl (6-23) 10/22/23 19:55 Creatinine 1.02 mg/dl (0.6-1.4) 10/22/23 19:55 Est Cr Clr Drug Dosing 89.9 ml/min 10/22/23 19:55 Est GFR ( Amer) 94.8 ml/min 10/22/23 19:55 Est GFR (Non-Af Amer) 81.8 ml/min 10/22/23 19:55 BUN/Creatinine Ratio 13.7 (10-20) 10/22/23 19:55 Glucose 125 mg/dl (70-99(Fasting)) H 10/22/23 19:55 Lactate 1.4 mmol/L (0.4-2.0) 10/22/23 23:20 Calcium 9.1 mg/dl (8.6-10.3) 10/22/23 19:55 Magnesium 1.7 mg/dl (1.7-2.4) 10/22/23 23:20 Total Bilirubin 0.8 mg/dl (0.2-1.0) 10/22/23 19:55 AST 40 U/L (13-39) H 10/22/23 19:55 ALT 44 U/L (7-52) 10/22/23 19:55 Alkaline Phosphatase 88 U/L (34-104) 10/22/23 19:55 Troponin I High Sens 5.4 pg/ml (0-20) 10/22/23 19:55 Total Protein 8.4 gm/dl (6.0-8.3) H 10/22/23 19:55 Albumin 4.5 gm/dl (3.4-5.0) 10/22/23 19:55 Globulin 3.9 gm/dl (2.5-4.0) 10/22/23 19:55 Albumin/Globulin Ratio 1.2 (0.9-2) 10/22/23 19:55 Lipase 39 U/L (11-82) 10/22/23 19:55 Urine Color Dark Yellow 10/22/23 22:00 Urine Appearance Clear (Clear) 10/22/23 22:00 Urine pH 5.0 (4.5-7.5) 10/22/23 22:00 Ur Specific [place] 1.031 (1.000-1.030) H 10/22/23 22:00 Urine Protein 3+ (Negative) H 10/22/23 22:00 Urine Glucose (UA) Negative (Negative) 10/22/23 22:00 Urine Ketones 2+ (Negative) H 10/22/23 22:00 Urine Blood Negative (Negative) 10/22/23 22:00 Urine Nitrite Negative (Negative) 10/22/23 22:00 Urine Bilirubin Negative (Negative) 10/22/23 22:00 Urine Urobilinogen Negative (Negative) 10/22/23 22:00 Ur Leukocyte Esterase Negative (Negative) 10/22/23 22:00 Urine WBC (Auto) 0-5 /hpf (0-5) 10/22/23 22:00 Urine RBC (Auto) 0-2 /hpf (0-2) 10/22/23 22:00 U Hyaline Cast (Auto) 6-10 /lpf (0-2) H 10/22/23 22:00 U Epithel Cells (Auto) 0-2 /hpf (0-2) 10/22/23 22:00 Urine Bacteria (Auto) None Seen (None Seen) 10/22/23 22:00 Hyaline Casts Present /lpf (None Presnt) A 10/22/23 22:00 Crossmatch See Detail 10/22/23 23:33 Impressions Abdomen/Pelvis CT 10/22/23 22:05 CR Exam(s): CT ABDOMEN + PELVIS With Contrast IV Amt: 92 cc opti 320 EXAM: CT Abdomen and Pelvis With Intravenous Contrast CLINICAL HISTORY: Reason for exam: abd pain n/d/v. TECHNIQUE: Axial computed tomography images of the abdomen and pelvis with intravenous contrast. CTDI is 27.58 mGy and DLP is 1456.04 mGy-cm. Automated exposure control was utilized for the study. A dose lowering technique was utilized adhering to the principles of ALARA. CONTRAST: Patient received 92 cc Optiray 320 of IV contrast COMPARISON: January 14, 2016 FINDINGS: Lung bases: Unremarkable. No mass. No consolidation. ABDOMEN: Liver: Unremarkable. No mass. Gallbladder and bile ducts: Unremarkable. No calcified stones. No ductal dilation. Pancreas: Unremarkable. No mass. No ductal dilation. Spleen: Unremarkable. No splenomegaly. Adrenals: Unremarkable. No mass. Kidneys and ureters: Unremarkable. No solid mass. No hydronephrosis. Stomach and bowel: There is wall thickening and mild edema involving several loops of small bowel in the right lower quadrant. Diverticulosis of the sigmoid colon without evidence of acute diverticulitis. No obstruction. PELVIS: Appendix: No findings to suggest acute appendicitis. Bladder: Unremarkable. No mass. Reproductive: Unremarkable as visualized. ABDOMEN and PELVIS: Intraperitoneal space: There is a small amount of free fluid in the abdomen. No free air. Bones/joints: No acute fracture. No dislocation. Soft tissues: Unremarkable. Vasculature: There is edema surrounding a thrombosed superior mesenteric vein. Small amount nonocclusive thrombus in the splenic vein. The portal vein is widely patent. No abdominal aortic aneurysm. Lymph nodes: Unremarkable. No enlarged lymph nodes. IMPRESSION: 1. There is wall thickening and mild edema involving several loops of small bowel in the right lower quadrant. There is edema surrounding an acutely the thrombosed superior mesenteric vein. 2. Small amount nonocclusive thrombus in the splenic vein. The portal vein is widely patent. Communications: Call Doctor Above results Electronically signed by: Merrill Pérez MD 10/22/23 22:45 PM Diagnostic Findings EKG as per my interpretation : Rate 110, sinus tachycardia, normal axis, T wave abnormalities inferior and septal leads
[2023-10-23] MEDS ORDERED: LORazepam 0.5 MG TAB PO PRN (00:11)
[2023-10-23] MEDS: HYDROmorphone INJ 1 MG/ML SYRINGE IV STA (00:12)
[2023-10-23] MEDS: LOSARTAN POTASSIUM 50 MG TAB PO STA (02:20)
[2023-10-23] MEDS: SODIUM CHLORIDE 0.9% 1,000 ML IV ONE (02:21)
[2023-10-23] MEDS: oxyCODONE HCL IR 5 MG TAB (IMMEDIATE RELEASE) PO PRN (03:33)
[2023-10-23] MEDS: PIPERACILLIN/TAZOBACTAM 4.5 GM in DEXTROSE 5% MINI-B 100 ML IV SCH (03:37)
[2023-10-23] MEDS: LOSARTAN POTASSIUM 25 MG TAB PO STA (06:17)
[2023-10-23 07:00] LABS: Basophils # (auto) 0.03 K/uL (0.00-0.20); Basophils % (auto) 0.3 %; Hematocrit (blood only) 54.2 % (42.0-52.0); Hemoglobin 17.5 g/dl (14.0-18.0); Immature Granulocytes # (auto) 0.07 K/uL (0.01-0.20); Immature Granulocytes % (auto) 0.6 %; Lymphocytes # (auto) 0.82 K/uL (1.20-3.40); Lymphocytes % (auto) 6.9 %; Mean Corpuscular Hemoglobin 28.3 pg (25.0-34.0); Mean Corpuscular Hgb Conc 32.3 g/dL (32.0-36.0); Mean Corpuscular Volume 87.6 fL (80.0-100.0); Mean Platelet Volume 9.9 fL (9.4-12.4); Monocytes # (auto) 1.02 K/uL (0.11-0.59); Monocytes % (auto) 8.6 %; Neutrophils # (auto) 9.91 K/uL (1.40-6.50); Neutrophils % (auto) 83.6 %; Platelet Count 238 K/uL (130-400); RDW Coefficient of Variation 12.9 % (11.5-14.5); RDW Standard Deviation 41.4 fL (36.4-46.3); Red Blood Count 6.19 M/uL (4.70-6.10); White Blood Count 11.85 K/ul (4.8-10.8)
[2023-10-23 07:04] LABS: BUN Creatinine Ratio 14.4 (10-20); Calcium 8.2 mg/dl (8.6-10.3); Creatinine Clr Calc Pharmacy 101.8 ml/min; Est GFR (African American) 110.3 ml/min; Est GFR (Non-African American) 95.1 ml/min; Potassium 4.3 mmol/L (3.5-5.1)
--- NOTE | 2023-10-23 07:23 | Surgery Consultation ---
Date of Consultation October 23, 2023 Assessment & Plan (1) Superior mesenteric vein thrombosis: This is a 58yM with a PMH of HTN, HLD who presents to the [facility] ED on 10/22/23 with complaints of severe abdominal pain and a bloody BM. This was associated with some nausea/vomiting. The patient came into the ER for further evaluation given symptoms. A CT a/p was obtained that revealed wall thickening and mild edema involving several loops of small bowel in the RLQ. There is edema surrounding an acutely the thrombosed superior mesenteric vein. In addition there is a small amount nonocclusive thrombus in the splenic vein and the portal vein is widely patent. The patient reports ongoing abdominal pain that is less severe than what brought him in, but still fairly uncomfortable. He denies any history of blood clots, or familial blood clots in the family. He is a none smoker, no personal history of afib or pancreatitis. Labs today show WBC 11.8, Hbg 175, Cr 0.9. Lactate on admission normal at 1.4. Vitals show patient is hypertensive SBPs 150-160s and DBPs 100s. He is afebrile with HRs ranging in the 90s. On examination abdomen is soft with generalized discomfort to palpation. Agree with hospitalization for supportive care with IVF, bowel rest, and the initiation of IV heparin. Will need workup for etiology of his SMV thrombus. At this point there is no evidence of bowel ischemia and majority of these cases improve with anticoagulation/bowel rest/IVF. We will follow closely. Supervising Physician Co-Signing Physician Notes pnt S&E, labs and imaging reviewed, agree with above. abd pain started Sat. CT with smv thrombosis and partial thrombus in splenic vein, edematous bowel but no signs of overt ischemia. Feeling a little better after a/c and abx started. afvss, abd soft, moderately ttp with no guarding. wbf 11.85, lactate normal. CT personally reviewed and interpreted, agree with smv thrombosis with no overt ischemia. Recommend a/c with heparin drip, abx, ivf's, bowel rest. hematology consult for source. No surgery unless ischemia develops. History of Present Illness Attending Physician: Komal Lin MD History of Present Illness This is a 58yM with a PMH of HTN, HLD who presents to the [facility] ED on 10/22/23 with complaints of severe abdominal pain and a bloody BM. This was associated with some nausea/vomiting. The patient came into the ER for further evaluation given symptoms. A CT a/p was obtained that revealed wall thickening and mild edema involving several loops of small bowel in the RLQ. There is edema surrounding an acutely the thrombosed superior mesenteric vein. In addition there is a small amount nonocclusive thrombus in the splenic vein and the portal vein is widely patent. The patient reports ongoing abdominal pain that is less severe than what brought him in, but still fairly uncomfortable. He denies any history of blood clots, or familial blood clots in the family. He is a none smoker, no personal history of afib or pancreatitis. Allergies Allergy/AdvReac Type Severity Reaction Status Date / Time No Known Allergies Allergy Verified 10/22/23 23:32 Home Medications Medication Instructions Recorded Confirmed Type candesartan 8 mg tablet 8 mg PO QAM 11/24/22 10/22/23 History rosuvastatin 10 mg tablet 10 mg PO DAILY 11/24/22 10/22/23 History acetaminophen 500 mg tablet 500 mg PO Q8H PRN PAIN/FEVER 10/22/23 10/22/23 History (Tylenol Extra Strength) aspirin 81 mg tablet,delayed 81 mg PO DAILY 10/22/23 10/22/23 History release multivitamin 1 tab PO DAILY 10/22/23 10/22/23 History Patient History Medical History Encounter for pre-operative examination History of anesthesia reaction "The spinal didn't work" -- ORIF LLE 1980s. HLD (hyperlipidemia) HTN (hypertension) Sleep apnea CPAP Surgical History History of wisdom tooth extraction History of removal of retained hardware History of open reduction and internal fixation (ORIF) procedure LLE History of colonoscopy Social History Smoking Status: Never smoker Second Hand Exposure: No; Do You Dip or Chew Tobacco: No; Hx Alcohol Use: Yes Alcohol type: hard liquor Hx Substance Use: No Preferred Language: Jordanian Communication Ability: Effective Materials Mgmt Tech Required: No Beliefs That Will Affect Care: None Current Living Situation: Spouse and Family Feels Safe at Home: Yes Safety Concerns: Feels Safe At This Time Assistive Devices: CPAP and Glasses Review of Systems Constitutional: no fever and no chills Respiratory: no dyspnea Cardiovascular: no chest pain Gastrointestinal: + abdominal pain, + bloating, + nausea, + vomiting and + blood in stools Physical Exam Physical Exam: awake, alert, appears somewhat uncomfortable 2/2 abdominal pain Constitutional: well developed and well nourished Respiratory: normal respiratory effort Cardiovascular: HRs 90-100s Gastrointestinal (Abdomen): Inspection/Auscultation: + abdomen distended (mild) Percussion/Palpation: + abdomen tender (generalized discomfort to palpation) and abdomen soft Results & Data Vital Signs (Past 12 Hours) Vital Signs Temp Pulse Pulse Resp BP BP Pulse Ox 10/23/23 06:56 97 H 10/23/23 06:30 90 22 156/109 H 94 10/23/23 04:42 93 H 23 155/111 H 96 10/23/23 03:00 88 21 178/122 H 96 10/23/23 02:19 89 22 169/117 H 94 10/23/23 01:56 92 H 19 165/110 H 94 10/23/23 01:45 90 10/23/23 01:00 89 22 159/104 H 95 10/23/23 00:45 86 21 166/104 H 94 10/23/23 00:36 87 23 163/105 H 96 10/23/23 00:21 87 153/107 H 10/23/23 00:18 91 H 25 H 153/107 H 94 10/23/23 00:09 84 20 210/135 H 98 10/23/23 00:08 85 21 217/143 H 98 10/23/23 00:03 89 25 H 209/136 H 97 10/23/23 00:02 91 H 209/136 H 10/22/23 23:36 93 H 18 192/116 H 95 10/22/23 23:12 94 H 21 95 10/22/23 22:33 93 H 20 95 10/22/23 22:26 102 H 31 H 177/117 H 97 10/22/23 22:06 86 15 91 10/22/23 21:48 97 H 22 94 10/22/23 21:45 92 H 10/22/23 21:27 99.0 F 94 H 24 161/107 H 95 10/22/23 19:20 97.5 F L 120 H 16 177/101 H 95 O2 Del Method O2 Flow Rate 10/23/23 06:56 10/23/23 06:30 Nasal Cannula 2 10/23/23 04:42 Nasal Cannula 2 10/23/23 03:00 Nasal Cannula 2 10/23/23 02:19 Nasal Cannula 2 10/23/23 01:56 Nasal Cannula 2 10/23/23 01:45 10/23/23 01:00 Nasal Cannula 2 10/23/23 00:45 Nasal Cannula 2 10/23/23 00:36 Nasal Cannula 2 10/23/23 00:21 10/23/23 00:18 Nasal Cannula 2 10/23/23 00:09 Nasal Cannula 2 10/23/23 00:08 Nasal Cannula 2 10/23/23 00:03 Nasal Cannula 2 10/23/23 00:02 10/22/23 23:36 Room Air 10/22/23 23:12 Room Air 10/22/23 22:33 Room Air 10/22/23 22:26 Room Air 10/22/23 22:06 Room Air 10/22/23 21:48 Room Air 10/22/23 21:45 10/22/23 21:27 Room Air 10/22/23 19:20 Room Air Diagnostic Findings ADDENDUM ADDENDUM: 10/22/23 22:58 Call Doctor Regarding Above results, called Dr. Guzman on 10/21 22:58 (-04:00) Electronically signed by: Merrill Pérez MD Electronically signed by: Merrill Pérez MD 10/22/23 22:45 PM ADDENDUM END Exam(s): CT ABDOMEN + PELVIS With Contrast IV Amt: 92 cc opti 320 EXAM: CT Abdomen and Pelvis With Intravenous Contrast CLINICAL HISTORY: Reason for exam: abd pain n/d/v. TECHNIQUE: Axial computed tomography images of the abdomen and pelvis with intravenous contrast. CTDI is 27.58 mGy and DLP is 1456.04 mGy-cm. Automated exposure control was utilized for the study. A dose lowering technique was utilized adhering to the principles of ALARA. CONTRAST: Patient received 92 cc Optiray 320 of IV contrast COMPARISON: January 14, 2016 FINDINGS: Lung bases: Unremarkable. No mass. No consolidation. ABDOMEN: Liver: Unremarkable. No mass. Gallbladder and bile ducts: Unremarkable. No calcified stones. No ductal dilation. Pancreas: Unremarkable. No mass. No ductal dilation. Spleen: Unremarkable. No splenomegaly. Adrenals: Unremarkable. No mass. Kidneys and ureters: Unremarkable. No solid mass. No hydronephrosis. Stomach and bowel: There is wall thickening and mild edema involving several loops of small bowel in the right lower quadrant. Diverticulosis of the sigmoid colon without evidence of acute diverticulitis. No obstruction. PELVIS: Appendix: No findings to suggest acute appendicitis. Bladder: Unremarkable. No mass. Reproductive: Unremarkable as visualized. ABDOMEN and PELVIS: Intraperitoneal space: There is a small amount of free fluid in the abdomen. No free air. Bones/joints: No acute fracture. No dislocation. Soft tissues: Unremarkable. Vasculature: There is edema surrounding a thrombosed superior mesenteric vein. Small amount nonocclusive thrombus in the splenic vein. The portal vein is widely patent. No abdominal aortic aneurysm. Lymph nodes: Unremarkable. No enlarged lymph nodes. IMPRESSION: 1. There is wall thickening and mild edema involving several loops of small bowel in the right lower quadrant. There is edema surrounding an acutely the thrombosed superior mesenteric vein. 2. Small amount nonocclusive thrombus in the splenic vein. The portal vein is widely patent. Communications: Call Doctor Above results Electronically signed by: Merrill Pérez MD 10/22/23 22:45 PM PG Care Time/CCT Total # of Minutes Spent Total Time Spent with Patient: Total time spent is greater than 50% in coordination of care (as documented) at patient's floor/unit and/or counseling patient: Coding Level of Care Code 04070 OFFICE CONSULT LVL 4/40M Diagnoses Superior mesenteric vein thrombosis K55.069
[2023-10-23 07:32] LABS: Estimated Average Glucose 126 mg/dl
[2023-10-23 07:50] LABS: ANTI-Xa, UFH(UnfractionatedHep 0.19 IU/ml (0.3-0.7)
[2023-10-23] MEDS: HEPARIN SOD (PORCINE) 1000 UNIT/ML ONE (08:30)
[2023-10-23] MEDS: MULTIVITAMIN TAB PO SCH (08:44)
[2023-10-23] MEDS: ROSUVASTATIN CALCIUM 10 MG TAB PO SCH (08:44)
[2023-10-23] MEDS: ACETAMINOPHEN 500 MG TAB PO PRN (08:44)
--- NOTE | 2023-10-23 09:52 | XRay Report ---
SINGLE VIEW CHEST CLINICAL HISTORY: Tachypnea FINDINGS: An AP, portable, upright chest radiograph is obtained. No prior studies are available for c omparison at the time of dictation. The examination is degraded by portable technique and apical lord otic positioning. The heart is enlarged. The pulmonary vasculature is noncongested. Mild atelectasis is seen at the lung bases. The lungs and pleural spaces are otherwise clear. No pneumothorax is seen. The bony thorax is grossly intact. IMPRESSION: Cardiac enlargement with no active disease in the chest. ACT 112: Negative or not required by law. Electronically signed by: Juan Oh M.D. 10/23/2023 9:51 AM
[2023-10-23] MEDS: PROMETHAZINE HCL 12.5 MG in SODIUM CHLORIDE 0.9% 50 ML IV PRN (10:35)
--- NOTE | 2023-10-23 13:13 | Electrocardiogram Report ---
Test Reason : Blood Pressure : / mmHG Vent. Rate : 108 BPM Atrial Rate : 108 BPM P-R Int : 182 ms QRS Dur : 080 ms QT Int : 334 ms P-R-T Axes : 028 052 017 degrees QTc Int : 447 ms Sinus tachycardia Otherwise normal ECG When compared with ECG of 27-NOV-2022 10:54, T wave inversion now evident in Inferior leads Confirmed by Anthony Simmons ([id number]) on 10/23/2023 1:13:05 PM Referred By: Confirmed By:Anthony Simmons
[2023-10-23 15:25] LABS: ANTI-Xa, UFH(UnfractionatedHep 0.35 IU/ml (0.3-0.7)
--- NOTE | 2023-10-23 16:55 | Hospitalist Progress Note ---
Date of Service October 23, 2023 Assessment & Plan (1) Superior mesenteric vein thrombosis: Plan: Abdominal pain/discomfort with nausea and diarrhea since Wednesday last Pain and bloating was worse yesterday Noted to have superior mesenteric vein thrombosis and nonocclusive thrombus in the splenic vein on CAT scan and thickening and edema of the several loops of small bowel in the right lower quadrant. Inflammatory bowel disease/infective enteritis needs to be ruled out Appreciate surgery input and recommendation Patient will be kept n.p.o., IV fluids will be administered, IV antibiotic has been given Stool culture and stool for C. difficile colitis and also occult blood May need to involve GI (2) Hypertensive crisis: Plan: Secondary to mesenteric vein thrombosis Blood pressure has been running very high Has been receiving oral losartan Will start IV Lopressor 5 mg every 6 hourly. Will try Nitropaste if the pressure is not controlled and can try IV hydralazine Has history of hypertension-will monitor blood pressure (3) Abdominal pain: Plan: Secondary to nonspecific colitis/enteritis (4) BRBPR (bright red blood per rectum): Plan: Has had diarrhea yesterday with bright red blood per rectum Will check a stool for C. difficile and stool culture and ocult blood May need to have GI evaluation (5) HLD (hyperlipidemia): Plan: Has been on statin (6) Acute thrombosis of splenic vein: Plan: As above Plan Has history of NAFLD Hyperglycemia-will check hemoglobin A1c DVT prophylaxis. Heparin Full code Patient requesting updates providers. Ms. Joanne Carrion, contact #[phone]. Admission and Anticipated Discharge Date Admission Date: October 23, 2023 Subjective 10/23/2023 The patient was seen and examined in ICU in presence of the He was admitted with abdominal pain, bloating, nausea, diarrhea and blood in the stool which has been going on since Wednesday Denies any fever and or chills Noted to have nonspecific enteritis with thrombosed superior mesenteric vein Still has abdominal pain and nausea which is worse with even taking medicine orally He will be kept n.p.o., IV fluid and IV pain medications will be given Review of Systems Review of Systems: All systems reviewed and are unremarkable except as noted below Constitutional: Flushed facies Physical Exam Physical Exam: Lying in bed with acute distress secondary to abdominal discomfort Constitutional: well developed, well nourished, + ill appearing and + obese Eyes: PERRL, conjunctivae normal, anicteric sclerae ENMT: external ear and nose normal, oropharynx normal Neck: trachea midline, no thyromegaly Respiratory: no respiratory distress Auscultation: lungs clear to auscultation bilaterally and + diminished lung sounds Cardiovascular: Rate/Rhythm: regular rate and regular rhythm; not tachycardic Heart Sounds: normal S1 and normal S2; no murmur Extremities: no edema Gastrointestinal (Abdomen): Inspection/Auscultation: + abdomen distended; + abnormal bowel sounds (Decreased) Percussion/Palpation: + abdomen tender (All over especially your right quadrants) and abdomen soft Musculoskeletal: No acute arthritis involving any of the joints Neurologic: normal touch/pain/proprioception and moves all extremities; no focal motor deficits Lymphatic: no cervical or axillary lymphadenopathy Results & Data Results & Data Vital Signs (Past 12 Hours) Vital Signs Pulse Pulse Resp BP BP Pulse Ox O2 Del Method 10/23/23 14:40 Nasal Cannula 10/23/23 14:09 98 H 24 174/113 H 95 10/23/23 14:03 104 H 24 174/113 H 94 Nasal Cannula 10/23/23 13:36 97 H 22 10/23/23 13:00 96 H 24 182/116 H 10/23/23 12:42 100 H 24 10/23/23 12:06 99 H 25 H 167/115 H 95 10/23/23 11:30 97 H 23 95 10/23/23 11:06 95 H 24 176/116 H 96 10/23/23 10:33 96 H 22 94 10/23/23 10:18 95 H 23 94 10/23/23 09:33 103 H 25 H 94 10/23/23 09:00 94 H 23 174/114 H 94 Room Air 10/23/23 08:33 102 H 25 H 94 Room Air 10/23/23 08:18 104 H 20 159/114 H 96 Room Air 10/23/23 07:30 96 H 24 94 Room Air 10/23/23 07:00 96 H 23 95 Room Air 10/23/23 07:00 149/107 H 10/23/23 06:56 97 H 10/23/23 06:30 90 22 156/109 H 94 Nasal Cannula 10/23/23 04:42 93 H 23 155/111 H 96 Nasal Cannula O2 Flow Rate 10/23/23 14:40 10/23/23 14:09 10/23/23 14:03 2 10/23/23 13:36 10/23/23 13:00 10/23/23 12:42 10/23/23 12:06 10/23/23 11:30 10/23/23 11:06 10/23/23 10:33 10/23/23 10:18 10/23/23 09:33 10/23/23 09:00 10/23/23 08:33 10/23/23 08:18 10/23/23 07:30 10/23/23 07:00 10/23/23 07:00 10/23/23 06:56 10/23/23 06:30 2 10/23/23 04:42 2 Laboratory Results Short CBC 10/22/23 10/23/23 Range/Units 19:55 06:08 WBC 10.35 11.85 H (4.8-10.8) K/ul Hgb 16.7 17.5 (14.0-18.0) g/dl Hct 50.7 54.2 H (42.0-52.0) % Plt Count 250 238 (130-400) K/uL BMP 10/22/23 10/23/23 19:55 06:08 Sodium 138 138 Potassium 4.0 4.3 Chloride 103 105 Carbon Dioxide 28 26 BUN 14 13 Creatinine 1.02 0.90 Glucose 125 H 157 H Calcium 9.1 8.2 L Liver Function 10/22/23 Range/Units 19:55 Total Bilirubin 0.8 (0.2-1.0) mg/dl AST 40 H (13-39) U/L ALT 44 (7-52) U/L Alkaline Phosphatase 88 (34-104) U/L Albumin 4.5 (3.4-5.0) gm/dl Urine 10/22/23 Range/Units 22:00 Urine Color Dark Yellow Urine Appearance Clear (Clear) Urine pH 5.0 (4.5-7.5) Ur Specific [place] 1.031 H (1.000-1.030) Urine Protein 3+ H (Negative) Urine Glucose (UA) Negative (Negative) Medications Administered Current Inpatient Medications Acetaminophen (Acetaminophen 500 Mg Tab) 500 mg PO Q6H PRN PRN Reason: fever/pain Stop: 11/22/23 00:10 Last Admin: 10/23/23 08:44 Dose: 500 mg Hydromorphone HCl (Hydromorphone Inj 1 Mg/Ml Syringe) 1 mg IV Q4H PRN PRN Reason: Pain Stop: 11/06/23 00:10 Heparin Sodium/Dextrose (Heparin Sodium/Dextrose) 25,000 units in 500 mls @ 22 mls/hr IV .[id number] [facility]; Protocol Stop: 11/21/23 23:44 Last Titration: 10/23/23 08:31 Dose: 1,100 units/hr, 22 mls/hr Promethazine HCl 12.5 mg/ (Sodium Chloride) 50.5 mls @ 202 mls/hr IV Q6H PRN PRN Reason: Nausea And Vomiting Stop: 11/22/23 00:10 Last Infusion: 10/23/23 10:50 Dose: Infused Piperacillin Sod/Tazobactam (Sod 4.5 gm/ Dextrose) 100 mls @ 25 mls/hr IV Q8H [facility]; Protocol Stop: 11/02/23 03:59 Last Infusion: 10/23/23 16:11 Dose: Infused Lorazepam (Lorazepam 0.5 Mg Tab) 0.5 mg PO TID PRN PRN Reason: Anxiety Stop: 11/22/23 00:10 Losartan Potassium (Losartan Potassium 25 Mg Tab) 75 mg PO QAM [facility] Stop: 11/23/23 08:59 Metoprolol Tartrate (Metoprolol Tartrate 25 Mg Tab) 25 mg PO BID [facility] Stop: 11/22/23 16:59 Metoprolol Tartrate (Metoprolol Tartrate 1 Mg/Ml Vial) 5 mg IV Q6 [facility] Stop: 11/22/23 17:59 Multivitamins (Multivitamin Tab) 1 tab PO DAILY [facility] Stop: 11/22/23 08:59 Last Admin: 10/23/23 08:44 Dose: 1 tab Oxycodone HCl (Oxycodone Hcl Ir 5 Mg Tab (Immediate Release)) 5 - 10 mg PO QID PRN PRN Reason: Pain Stop: 11/06/23 00:10 Last Admin: 10/23/23 12:32 Dose: 10 mg Rosuvastatin Calcium (Rosuvastatin Calcium 10 Mg Tab) 10 mg PO DAILY [facility] Stop: 11/22/23 08:59 Last Admin: 10/23/23 08:44 Dose: 10 mg (3) Abdominal pain Abdominal location: unspecified location Qualified Code(s): R10.9 - Unspecified abdominal pain
[2023-10-23] MEDS: METOPROLOL TARTRATE 1 MG/ML VIAL IV SCH (17:51)
[2023-10-23] MEDS: METOPROLOL TARTRATE 25 MG TAB PO SCH (17:51)
[2023-10-23] MEDS: HYDROmorphone INJ 1 MG/ML SYRINGE IV PRN (18:01)
[2023-10-24] MEDS: hydrALAZINE HCL 20 MG/ML VIAL IV ONE (00:32)
[2023-10-24] MEDS: cloNIDine HCL 0.1 MG TAB PO ONE (04:16)
[2023-10-24] MEDS: NITROGLYCERIN 2% OINTMENT 30GM TUBE EXT SCH (06:44)
[2023-10-24 06:48] LABS: Basophils # (auto) 0.05 K/uL (0.00-0.20); Basophils % (auto) 0.3 %; Eosinophils # (auto) 0.01 K/uL (0.00-0.50); Eosinophils % (auto) 0.1 %; Hematocrit (blood only) 52.4 % (42.0-52.0); Hemoglobin 16.9 g/dl (14.0-18.0); Immature Granulocytes # (auto) 0.09 K/uL (0.01-0.20); Immature Granulocytes % (auto) 0.5 %; Lymphocytes # (auto) 0.96 K/uL (1.20-3.40); Lymphocytes % (auto) 5.4 %; Mean Corpuscular Hemoglobin 28.4 pg (25.0-34.0); Mean Corpuscular Hgb Conc 32.3 g/dL (32.0-36.0); Mean Corpuscular Volume 88.1 fL (80.0-100.0); Mean Platelet Volume 9.8 fL (9.4-12.4); Monocytes # (auto) 1.36 K/uL (0.11-0.59); Monocytes % (auto) 7.7 %; Neutrophils # (auto) 15.21 K/uL (1.40-6.50); Platelet Count 251 K/uL (130-400); RDW Standard Deviation 42.1 fL (36.4-46.3); Red Blood Count 5.95 M/uL (4.70-6.10); White Blood Count 17.68 K/ul (4.8-10.8)
[2023-10-24 07:06] LABS: C Reactive Protein 25.02 mg/dl (0-0.5); Phosphorus 2.1 mg/dl (2.5-4.9)
[2023-10-24 07:13] LABS: ANTI-Xa, UFH(UnfractionatedHep 0.24 IU/ml (0.3-0.7)
[2023-10-24] MEDS ORDERED: SODIUM PHOSPHATE 3 MMOL/1 ML 5 ML VIAL IV ONE (08:03)
[2023-10-24] MEDS ORDERED: LOSARTAN POTASSIUM 50 MG TAB PO SCH (09:00)
--- NOTE | 2023-10-24 09:29 | Surgery Progress Note ---
Date of Service October 24, 2023 Assessment & Plan (1) Superior mesenteric vein thrombosis: Plan: Pt with feeling increase in abd distention and discomfort WBC elevated 17 (11) , continue IV antibiotics Will repeat Lactate this AM Possible repeat CT scan today vs tomorrow Contin. Elevation in BP and HR Will continue to [facility] Patient seen and examined with Dr. Fall Admission and Anticipated Discharge Date Admission Date: October 23, 2023 Supervising Physician Co-Signing Physician Notes pnt S&E, labs and imaging reviewed, agree with above. abd pain started Sat. CT with smv thrombosis and partial thrombus in splenic vein, edematous bowel but no signs of overt ischemia. Not much improvement over yesterday. intermittent tachycardia, abd soft, moderately ttp with no guarding. wbc 17 (11). Recommend a/c with heparin drip, abx, ivf's, bowel rest. hematology consult for source. lactate today, may repeat CT scan if elevated. No surgery unless ischemia develops. Subjective Pt reports feeling increase in abd distention and discomfort Review of Systems Constitutional: no fever and no chills Gastrointestinal: + abdominal pain, + bloating and + cramp ing; no nausea and no vomiting Physical Exam Physical Exam: alert oriented Constitutional: no acute distress and + uncomfortable Cardiovascular: Rate/Rhythm: + tachycardic (93) Gastrointestinal (Abdomen): Inspection/Auscultation: + abdomen distended Percussion/Palpation: + abdomen tender and + guarding Results & Data Vital Signs (Past 12 Hours) Vital Signs Temp Pulse Pulse Resp BP BP BP 10/24/23 07:53 97.5 F L 93 H 20 148/101 H 10/24/23 07:12 117 H 10/24/23 06:49 98.5 F 97 H 22 144/113 H 10/24/23 06:20 93 H 161/112 H 10/24/23 06:04 114 H 177/117 H 10/24/23 05:57 108 H 22 180/112 H 177/117 H 10/24/23 03:56 171/111 H 10/24/23 03:20 98.1 F 121 H 18 161/113 H 10/24/23 01:30 90 10/24/23 01:06 139/112 H 10/23/23 23:47 80 152/111 H 10/23/23 23:34 93 H 143/103 H 10/23/23 22:52 98.2 F 99 H 18 142/101 H Pulse Ox O2 Del Method O2 Flow Rate 10/24/23 07:53 94 Nasal Cannula 3 10/24/23 07:12 10/24/23 06:49 94 Nasal Cannula 2 10/24/23 06:20 10/24/23 06:04 10/24/23 05:57 94 Nasal Cannula 2 10/24/23 03:56 10/24/23 03:20 95 Nasal Cannula 2.0 10/24/23 01:30 10/24/23 01:06 10/23/23 23:47 10/23/23 23:34 10/23/23 22:52 95 Room Air Results CBC w Diff Results: RBC 5.95 M/uL (4.70-6.10) 10/24/23 WBC 17.68 K/ul (4.8-10.8) H 10/24/23 Hgb 16.9 g/dl (14.0-18.0) 10/24/23 Hct 52.4 % (42.0-52.0) H 10/24/23 MCV 88.1 fL (80.0-100.0) 10/24/23 MCH 28.4 pg (25.0-34.0) 10/24/23 MCHC 32.3 g/dL (32.0-36.0) 10/24/23 RDW Standard Deviation 42.1 fL (36.4-46.3) 10/24/23 RDW Coefficient of Variation 13.0 % (11.5-14.5) 10/24/23 Plt Count 251 K/uL (130-400) 10/24/23 MPV 9.8 fL (9.4-12.4) 10/24/23 Neutrophils (%) (Auto) 86.0 % 10/24/23 Lymphocytes (%) (Auto) 5.4 % 10/24/23 Monocytes # (Auto) 1.36 K/uL (0.11-0.59) H 10/24/23 Eosinophils # (Auto) 0.01 K/uL (0.00-0.50) 10/24/23 Immature Granulocyte % (Auto) 0.5 % 10/24/23 Neutrophils # (Auto) 15.21 K/uL (1.40-6.50) H 10/24/23 Lymphocytes # (Auto) 0.96 K/uL (1.20-3.40) L 10/24/23 Monocytes # (Auto) 1.36 K/uL (0.11-0.59) H 10/24/23 Eosinophils # (Auto) 0.01 K/uL (0.00-0.50) 10/24/23 Basophils # (Auto) 0.05 K/uL (0.00-0.20) 10/24/23 Immature Granulocyte # (Auto) 0.09 K/uL (0.01-0.20) 4 PG Care Time/CCT Total # of Minutes Spent Total Time Spent with Patient: Total time spent is greater than 50% in coordination of care (as documented) at patient's floor/unit and/or counseling patient: Coding Level of Care Code 26352 SUB INP/OBS CARE 125MIN Diagnoses Superior mesenteric vein thrombosis K55.069
[2023-10-24] MEDS: SODIUM PHOSPHATE 24 MMOL in SODIUM CHLORIDE 0.9% 500 ML IV ONE (10:01)
[2023-10-24] MEDS: LOSARTAN POTASSIUM 25 MG TAB PO SCH (10:38)
--- NOTE | 2023-10-24 14:14 | Hospitalist Progress Note ---
Date of Service October 24, 2023 Assessment & Plan (1) Superior mesenteric vein thrombosis: Plan: Abdominal pain/discomfort with nausea and diarrhea since Wednesday last Pain and bloating was worse yesterday Noted to have superior mesenteric vein thrombosis and nonocclusive thrombus in the splenic vein on CAT scan and thickening and edema of the several loops of small bowel in the right lower quadrant. Inflammatory bowel disease/infective enteritis needs to be ruled out Appreciate surgery input and recommendation Patient will be kept n.p.o., IV fluids will be administered, IV antibiotic has been given Stool culture and stool for C. difficile colitis and also occult blood Increasing abdominal pain and distention (2) Abdominal pain: Plan: Secondary to nonspecific colitis/enteritis CT scan showed thickening and edema of the small loops of the small bowel in the right lower quadrant Has had 2 bright blood per rectum prior to admission Did have another bouts of bright light blood per rectum this afternoon at around 2 PM Stool was sent for culture and C. difficile test Will ask GI to evaluate Increasing abdominal pain and distention-lactate has been normal, CRP remains very high at 25 and the white blood cell count went of high as well He has been on intravenous Zosyn for possible nonspecific ileitis Will get a repeat CT scan of the abdomen this afternoon (3) Hypertensive crisis: Plan: Secondary to mesenteric vein thrombosis Blood pressure has been running very high Has been receiving oral losartan Will start IV Lopressor 5 mg every 6 hourly. Will try Nitropaste if the pressure is not controlled and can try IV hydralazine Has history of hypertension-will monitor blood pressure Blood pressure remains on the upper side at 151/90 (4) BRBPR (bright red blood per rectum): Plan: Has had diarrhea yesterday with bright red blood per rectum Will check a stool for C. difficile and stool culture and ocult blood Has had another episode of bright red blood per rectum Will ask for GI to evaluate (5) HLD (hyperlipidemia): Plan: Has been on statin (6) Acute thrombosis of splenic vein: Plan: As above Plan Has history of NAFLD Hyperglycemia-will check hemoglobin A1c-6.1 DVT prophylaxis. Heparin Full code Patient requesting updates providers. Zhane Joanne Carrion, contact #[phone]. Admission and Anticipated Discharge Date Admission Date: October 23, 2023 Subjective 10/23/2023 The patient was seen and examined in ICU in presence of the He was admitted with abdominal pain, bloating, nausea, diarrhea and blood in the stool which has been going on since Wednesday Denies any fever and or chills Noted to have nonspecific enteritis with thrombosed superior mesenteric vein Still has abdominal pain and nausea which is worse with even taking medicine orally He will be kept n.p.o., IV fluid and IV pain medications will be given 10/24/2023 The patient was seen and examined in telemetry unit in presence of the He has been complaining of more abdominal pain and distention Denies any shortness of breath at rest, has nausea but no vomiting, no fever and no chills Just now he has had a bowel movement which was bloody Review of Systems Review of Systems: All systems reviewed and are unremarkable except as noted below Constitutional: Flushed facies Physical Exam Physical Exam: Lying in bed with acute distress secondary to abdominal discomfort Constitutional: well developed, well nourished, + ill appearing and + obese Eyes: PERRL, conjunctivae normal, anicteric sclerae ENMT: external ear and nose normal, oropharynx normal Neck: trachea midline, no thyromegaly Respiratory: no respiratory distress Auscultation: lungs clear to auscultation bilaterally and + diminished lung sounds Cardiovascular: Rate/Rhythm: regular rate and regular rhythm; not tachycardic Heart Sounds: normal S1 and normal S2; no murmur Extremities: no edema Gastrointestinal (Abdomen): Inspection/Auscultation: + abdomen distended; + abnormal bowel sounds (Decreased) Percussion/Palpation: + abdomen tender (All over especially your right quadrants) and abdomen soft Musculoskeletal: No acute arthritis involving any of the joints Neurologic: normal touch/pain/proprioception and moves all extremities; no focal motor deficits Lymphatic: no cervical or axillary lymphadenopathy Results & Data Results & Data Vital Signs (Past 12 Hours) Vital Signs Temp Pulse Pulse Resp BP BP BP 10/24/23 12:59 113 H 151/90 H 10/24/23 11:18 36.5 C 102 H 20 141/99 H 10/24/23 07:53 36.4 C L 93 H 20 148/101 H 10/24/23 07:12 117 H 10/24/23 06:49 36.9 C 97 H 22 144/113 H 10/24/23 06:20 93 H 161/112 H 10/24/23 06:04 114 H 177/117 H 10/24/23 05:57 108 H 22 180/112 H 177/117 H 10/24/23 03:56 171/111 H 10/24/23 03:20 36.7 C 121 H 18 161/113 H Pulse Ox O2 Del Method O2 Flow Rate 10/24/23 12:59 10/24/23 11:18 94 Nasal Cannula 3 10/24/23 07:53 94 Nasal Cannula 3 10/24/23 07:12 10/24/23 06:49 94 Nasal Cannula 2 10/24/23 06:20 10/24/23 06:04 10/24/23 05:57 94 Nasal Cannula 2 10/24/23 03:56 10/24/23 03:20 95 Nasal Cannula 2.0 Laboratory Results Short CBC 10/24/23 Range/Units 06:27 WBC 17.68 H (4.8-10.8) K/ul Hgb 16.9 (14.0-18.0) g/dl Hct 52.4 H (42.0-52.0) % Plt Count 251 (130-400) K/uL Medications Administered Current Inpatient Medications Acetaminophen (Acetaminophen 500 Mg Tab) 500 mg PO Q6H PRN PRN Reason: fever/pain Stop: 11/22/23 00:10 Last Admin: 10/23/23 08:44 Dose: 500 mg Hydromorphone HCl (Hydromorphone Inj 1 Mg/Ml Syringe) 1 mg IV Q4H PRN PRN Reason: Pain Stop: 11/06/23 00:10 Last Admin: 10/24/23 10:36 Dose: 1 mg Heparin Sodium/Dextrose (Heparin Sodium/Dextrose) 25,000 units in 500 mls @ 24 mls/hr IV .[id number] [facility]; Protocol Stop: 11/21/23 23:44 Last Admin: 10/24/23 09:08 Dose: Not Given Promethazine HCl 12.5 mg/ (Sodium Chloride) 50.5 mls @ 202 mls/hr IV Q6H PRN PRN Reason: Nausea And Vomiting Stop: 11/22/23 00:10 Last Infusion: 10/24/23 11:50 Dose: Infused Piperacillin Sod/Tazobactam (Sod 4.5 gm/ Dextrose) 100 mls @ 25 mls/hr IV Q8H [facility]; Protocol Stop: 11/02/23 03:59 Last Admin: 10/24/23 12:58 Dose: 25 mls/hr Sodium Chloride (Nss) 1,000 mls @ 80 mls/hr IV .[id number] [facility] Stop: 10/25/23 23:29 Lorazepam (Lorazepam 0.5 Mg Tab) 0.5 mg PO TID PRN PRN Reason: Anxiety Stop: 11/22/23 00:10 Losartan Potassium (Losartan Potassium 25 Mg Tab) 75 mg PO QAM [facility] Stop: 11/23/23 08:59 Last Admin: 10/24/23 10:38 Dose: 75 mg Metoprolol Tartrate (Metoprolol Tartrate 25 Mg Tab) 25 mg PO BID [facility] Stop: 11/22/23 16:59 Last Admin: 10/23/23 17:51 Dose: Not Given Metoprolol Tartrate (Metoprolol Tartrate 1 Mg/Ml Vial) 5 mg IV Q6 [facility] Stop: 11/22/23 17:59 Last Admin: 10/24/23 12:59 Dose: 5 mg Multivitamins (Multivitamin Tab) 1 tab PO DAILY [facility] Stop: 11/22/23 08:59 Last Admin: 10/24/23 10:38 Dose: 1 tab Nitroglycerin (Nitroglycerin 2% Ointment 30gm Tube) 0.5 inch EXT Q6H [facility] Stop: 11/23/23 06:29 Last Admin: 10/24/23 13:01 Dose: 0.5 inch Oxycodone HCl (Oxycodone Hcl Ir 5 Mg Tab (Immediate Release)) 5 - 10 mg PO QID PRN PRN Reason: Pain Stop: 11/06/23 00:10 Last Admin: 10/23/23 12:32 Dose: 10 mg Rosuvastatin Calcium (Rosuvastatin Calcium 10 Mg Tab) 10 mg PO DAILY [facility] Stop: 11/22/23 08:59 Last Admin: 10/24/23 10:38 Dose: 10 mg (2) Abdominal pain Abdominal location: unspecified location Qualified Code(s): R10.9 - Unspecified abdominal pain
[2023-10-24 15:03] LABS: Basophils # (auto) 0.05 K/uL (0.00-0.20); Basophils % (auto) 0.3 %; Eosinophils # (auto) 0.01 K/uL (0.00-0.50); Eosinophils % (auto) 0.1 %; Hematocrit (blood only) 49.9 % (42.0-52.0); Immature Granulocytes % (auto) 0.6 %; Lymphocytes # (auto) 0.92 K/uL (1.20-3.40); Lymphocytes % (auto) 5.7 %; Mean Corpuscular Hemoglobin 28.5 pg (25.0-34.0); Mean Corpuscular Hgb Conc 32.1 g/dL (32.0-36.0); Mean Corpuscular Volume 88.8 fL (80.0-100.0); Mean Platelet Volume 9.6 fL (9.4-12.4); Monocytes # (auto) 1.42 K/uL (0.11-0.59); Monocytes % (auto) 8.7 %; Neutrophils # (auto) 13.73 K/uL (1.40-6.50); Neutrophils % (auto) 84.6 %; Platelet Count 241 K/uL (130-400); RDW Standard Deviation 42.3 fL (36.4-46.3); Red Blood Count 5.62 M/uL (4.70-6.10); White Blood Count 16.23 K/ul (4.8-10.8)
[2023-10-24 15:17] LABS: Adenovirus F 40/41 PCR Not Detected (NotDetected); Astrovirus PCR Not Detected (NotDetected); Campylobacter PCR Not Detected (NotDetected); Cryptosporidium PCR Not Detected (NotDetected); Cyclospora cayetanensis PCR Not Detected (NotDetected); Entamoeba histolytica PCR Not Detected (NotDetected); Enteroaggregative E.coli(EAEC) Not Detected (NotDetected); Enteropathogenic E.coli (EPEC) Not Detected (NotDetected); Enterotoxigenic E.coli (ETEC) Not Detected (NotDetected); Giardia lamblia PCR Not Detected (NotDetected); Norovirus GI/GII PCR Not Detected (NotDetected); Plesiomonas shigelloides PCR Not Detected (NotDetected); Rotavirus A PCR Not Detected (NotDetected); Salmonella PCR Not Detected (NotDetected); Sapovirus PCR Not Detected (NotDetected); Shiga-like Toxin E.coli (STEC) Not Detected (NotDetected); Shigella/Enteroinvasive E.coli Not Detected (NotDetected); Vibrio cholerae PCR Not Detected (NotDetected); Vibrio species PCR Not Detected (NotDetected); Yersinia enterocolitica PCR Not Detected (NotDetected)
[2023-10-24 15:26] LABS: ANTI-Xa, UFH(UnfractionatedHep 0.27 IU/ml (0.3-0.7)
[2023-10-24] MEDS: SODIUM CHLORIDE 0.9% 1,000 ML IV SCH (15:39)
[2023-10-24] MEDS ORDERED: LORazepam 0.25 MG in SYRINGE 0.125 ML IV PRN (17:45)
[2023-10-24] MEDS: PANTOprazole 40 MG in SYRINGE 0 ML IV ONE (18:23)
[2023-10-24] MEDS: PANTOprazole 40 MG in SYRINGE 0 ML IV SCH (20:09)
[2023-10-24 22:18] LABS: ANTI-Xa, UFH(UnfractionatedHep 0.32 IU/ml (0.3-0.7)
[2023-10-25 06:08] LABS: Basophils # (auto) 0.05 K/uL (0.00-0.20); Basophils % (auto) 0.3 %; Eosinophils # (auto) 0.15 K/uL (0.00-0.50); Hematocrit (blood only) 45.4 % (42.0-52.0); Hemoglobin 14.4 g/dl (14.0-18.0); Immature Granulocytes # (auto) 0.09 K/uL (0.01-0.20); Immature Granulocytes % (auto) 0.6 %; Lymphocytes # (auto) 1.48 K/uL (1.20-3.40); Lymphocytes % (auto) 9.8 %; Mean Corpuscular Hemoglobin 28.5 pg (25.0-34.0); Mean Corpuscular Hgb Conc 31.7 g/dL (32.0-36.0); Mean Corpuscular Volume 89.7 fL (80.0-100.0); Mean Platelet Volume 9.8 fL (9.4-12.4); Monocytes # (auto) 1.41 K/uL (0.11-0.59); Monocytes % (auto) 9.3 %; Neutrophils # (auto) 11.94 K/uL (1.40-6.50); Platelet Count 254 K/uL (130-400); RDW Coefficient of Variation 13.2 % (11.5-14.5); RDW Standard Deviation 43.2 fL (36.4-46.3); Red Blood Count 5.06 M/uL (4.70-6.10); White Blood Count 15.12 K/ul (4.8-10.8)
[2023-10-25 06:24] LABS: BUN Creatinine Ratio 22.9 (10-20); Creatinine Clr Calc Pharmacy 99.7 ml/min; Potassium 4.1 mmol/L (3.5-5.1)
[2023-10-25 06:28] LABS: ANTI-Xa, UFH(UnfractionatedHep 0.32 IU/ml (0.3-0.7)
[2023-10-25 07:38] VITALS: RESP 18
--- NOTE | 2023-10-25 10:37 | Gastrointestinal Consultation ---
Date of Consultation October 25, 2023 Assessment & Plan (1) BRBPR (bright red blood per rectum): 58 year old male with history of NAFLD, hyperglycemia, dyslipidemia and others below admitted through the ED with abdominal pain, SMV thrombus - GI was asked to evaluate for BRBPR, small bowel wall thickening. He was started on IV Zosyn, Heparin. Was evaluated by general surgery with a plan for a repeat CT scan today. He has remained hemodynamically stable w/ BP 132/88 and HGB 14.4 and normal BUN. We discussed the role of a diagnostic colonoscopy which he would be agreeable to pending results of the repeat CT scan Follow CT. Pending results, colonoscopy to be considered tomorrow given persistent rectal bleeding, need for anticoagulation. He would need his heparin gtt discontinued for about 3 hours. Trend H&H. Transfuse PRN. Monitor and document GI output. Please call with any acute changes, questions or concerns Thank you for allowing us to participate in the care of this patient. Please call with any acute changes, questions or concerns. Please see addendum below with additional recommendation from my supervising physician. I spent a total of 60 minutes on the date of service in review of patient's record, and previously obtained information in person and appropriate medical visit, discussion and education of plan, with patient and/or caregiver, placing orders for tests/referral/procedures as medically necessary and documentation of pertinent clinical information in patient's medical records for their visit today. Supervising Physician Co-Signing Physician Notes I examined the patient and reviewed patient's chart , laboratory data and imaging studies. I agree with with assessment and plan of care as suggested by advanced practice provider. Acute mesenteric vein thrombosis. Concern for small bowel ischemia. To review with radiologist regarding possible referral for thrombectomy. History of Present Illness Reason for Consultation: BRBPR, small bowel wall thickening, SMV thrombosis Requesting Physician: Delia Attending Physician: Komal Lin MD History of Present Illness 58 year old male with history of NAFLD, hyperglycemia, dyslipidemia and others below admitted through the ED with abdominal pain - GI was asked to evaluate for BRBPR, small bowel wall thickening and SMV thrombosis. Pt was seen and evaluated, chart reviewed. Spouse present in room who aids in history. He notes that he developed abd pain, upper abdominal region about 10-14 days. Notes the pain was explained as pressure, bloating but sharp. Notes a few days ago the pain started, he noted change in bowel habits, alternating diarrhea/constipation. Suggests around that time he developed some nausea, emesis. Pain persisted, follow by large emptying of bowel and episodes of BRBPR. Sought ED care at that time. In the ED, he was afebrile w/ WBC 11.8, Lactate 1.4, HTN w/ SBPs 150-160s and DBPs 100s. CT imaging showing wall thickening and edema of small bowel, acutely thrombosed SMV and a nonocclusive thrombus in the splenic vein. He was started on IV Zosyn, Heparin. Was evaluated by general surgery with a plan for a repeat CT scan today. CRP 25 Stool studies 2023: negative CTAP 2023: There is wall thickening and mild edema involving several loops of small bowel in the right lower quadrant. There is edema surrounding an acutely the thrombosed superior mesenteric vein. Small amount nonocclusive thrombus in the splenic . The portal vein is widely patent. Allergies Allergy/AdvReac Type Severity Reaction Status Date / Time No Known Allergies Allergy Verified 10/22/23 23:32 Home Medications Medication Instructions Recorded Confirmed Type candesartan 8 mg tablet 8 mg PO QAM 11/24/22 10/22/23 History rosuvastatin 10 mg tablet 10 mg PO DAILY 11/24/22 10/22/23 History acetaminophen 500 mg tablet 500 mg PO Q8H PRN PAIN/FEVER 10/22/23 10/22/23 History (Tylenol Extra Strength) aspirin 81 mg tablet,delayed 81 mg PO DAILY 10/22/23 10/22/23 History release multivitamin 1 tab PO DAILY 10/22/23 10/22/23 History Patient History Medical History Encounter for pre-operative examination History of anesthesia reaction "The spinal didn't work" -- ORIF LLE . HLD (hyperlipidemia) HTN (hypertension) Sleep apnea CPAP Surgical History History of wisdom tooth extraction History of removal of retained hardware History of open reduction and internal fixation (ORIF) procedure LLE History of colonoscopy Social History Smoking Status: Never smoker Second Hand Exposure: No; Do You Dip or Chew Tobacco: No; Hx Alcohol Use: Yes Alcohol type: hard liquor Hx Substance Use: No Preferred Language: Albanian Communication Ability: Effective Toddler Teacher Required: No Beliefs That Will Affect Care: None Current Living Situation: Spouse and Family Feels Safe at Home: Yes Assistive Devices: CPAP Review of Systems Review of Systems: All other findings negative except as noted in HPI. Physical Exam Constitutional: WD/WN, vitals as above Respiratory: normal respiratory effort wearing nasal cannula, 3L Cardiovascular: Rate/Rhythm: regular rate and regular rhythm Gastrointestinal (Abdomen): Inspection/Auscultation: normal bowel sounds Percussion/Palpation: + abdomen tender and abdomen soft (he reports he is more distended than what is normal for him); no guarding and abdomen not rigid Skin: no rashes, warm and dry Results & Data Vital Signs (Past 12 Hours) Vital Signs Temp Pulse Pulse Resp BP BP Pulse Ox 10/25/23 08:32 90 10/25/23 07:36 36.7 C 85 18 132/88 93 10/25/23 06:29 86 16 160/105 H 96 10/25/23 06:11 85 160/114 H 10/25/23 05:50 87 162/101 H 10/25/23 03:27 36.6 C 88 18 110/71 95 10/25/23 00:58 98/70 L 10/25/23 00:38 95 H 10/25/23 00:36 80 102/76 10/25/23 00:21 90 109/70 10/24/23 22:58 95 H 20 131/85 92 O2 Del Method O2 Flow Rate 10/25/23 08:32 10/25/23 07:36 Nasal Cannula 3.0 10/25/23 06:29 Nasal Cannula 3 10/25/23 06:11 10/25/23 05:50 10/25/23 03:27 Nasal Cannula 3.0 10/25/23 00:58 10/25/23 00:38 10/25/23 00:36 10/25/23 00:21 10/24/23 22:58 Nasal Cannula 2 Laboratory Results 10/25/23 10/24/23 10/24/23 Range/Units 05:31 21:40 14:51 WBC 15.12 H 16.23 H (4.8-10.8) K/ul RBC 5.06 5.62 (4.70-6.10) M/uL Hgb 14.4 16.0 (14.0-18.0) g/dl Hct 45.4 49.9 (42.0-52.0) % MCV 89.7 88.8 (80.0-100.0) fL MCH 28.5 28.5 (25.0-34.0) pg MCHC 31.7 L 32.1 (32.0-36.0) g/dL RDW Std Deviation 43.2 42.3 (36.4-46.3) fL RDW Coeff of Abbey 13.2 13.0 (11.5-14.5) % Plt Count 254 241 (130-400) K/uL MPV 9.8 9.6 (9.4-12.4) fL Immature Gran % (Auto) 0.6 0.6 % Neut % (Auto) 79.0 84.6 % Lymph % (Auto) 9.8 5.7 % Cotton % (Auto) 9.3 8.7 % Eos % (Auto) 1.0 0.1 % Baso % (Auto) 0.3 0.3 % Neut # (Auto) 11.94 H 13.73 H (1.40-6.50) K/uL Lymph # (Auto) 1.48 0.92 L (1.20-3.40) K/uL Cotton # (Auto) 1.41 H 1.42 H (0.11-0.59) K/uL Eos # (Auto) 0.15 0.01 (0.00-0.50) K/uL Baso # (Auto) 0.05 0.05 (0.00-0.20) K/uL Immature Gran # (Auto) 0.09 0.10 (0.01-0.20) K/uL Heparin Anti-Xa, Unfract 0.32 0.32 0.27 L (0.3-0.7) IU/ml Sodium 136 (136-145) mmol/L Potassium 4.1 (3.5-5.1) mmol/L Chloride 100 (98-107) mmol/L Carbon Dioxide 31 (21-32) mmol/L Anion Gap 5 (3-11) BUN 22 (6-23) mg/dl Creatinine 0.96 (0.6-1.4) mg/dl Est Cr Clr Drug Dosing 99.7 ml/min Est GFR ( Amer) 102.0 ml/min Est GFR (Non-Af Amer) 88.0 ml/min BUN/Creatinine Ratio 22.9 H (10-20) Glucose 100 H (70-99(Fasting)) mg/dl Lactate (0.4-2.0) mmol/L Calcium 8.0 L (8.6-10.3) mg/dl Stl C. cayetanensis PCR (NotDetected) Stool Rotavirus A PCR (NotDetected) Stl Adenov F 40/41 PCR (NotDetected) Stool Astrovirus (PCR) (NotDetected) Stool Campylobacter PCR (NotDetected) Stool Cryptosporidium PCR (NotDetected) Stl E.coli Shiga Tox PCR (NotDetected) Stl Enterotoxigenic E PCR (NotDetected) Stool EPEC (PCR) (NotDetected) Stool EAEC (PCR) (NotDetected) Stl E. histolytica PCR (NotDetected) Stool Giardia Lamblia PCR (NotDetected) Stool Salmonella PCR (NotDetected) Stool Sapovirus (PCR) (NotDetected) Stl P. shigelloides PCR (NotDetected) Stl Shigella/EIEC PCR (NotDetected) St Y.enterocolitica PCR (NotDetected) Stool Vibrio (PCR) (NotDetected) Stl Vibrio cholerae PCR (NotDetected) Stl Norovirus GI/GII PCR (NotDetected) 10/24/23 10/24/23 Range/Units 13:45 10:37 WBC (4.8-10.8) K/ul RBC (4.70-6.10) M/uL Hgb (14.0-18.0) g/dl Hct (42.0-52.0) % MCV (80.0-100.0) fL MCH (25.0-34.0) pg MCHC (32.0-36.0) g/dL RDW Std Deviation (36.4-46.3) fL RDW Coeff of Abbey (11.5-14.5) % Plt Count (130-400) K/uL MPV (9.4-12.4) fL Immature Gran % (Auto) % Neut % (Auto) % Lymph % (Auto) % Cotton % (Auto) % Eos % (Auto) % Baso % (Auto) % Neut # (Auto) (1.40-6.50) K/uL Lymph # (Auto) (1.20-3.40) K/uL Cotton # (Auto) (0.11-0.59) K/uL Eos # (Auto) (0.00-0.50) K/uL Baso # (Auto) (0.00-0.20) K/uL Immature Gran # (Auto) (0.01-0.20) K/uL Heparin Anti-Xa, Unfract (0.3-0.7) IU/ml Sodium (136-145) mmol/L Potassium (3.5-5.1) mmol/L Chloride (98-107) mmol/L Carbon Dioxide (21-32) mmol/L Anion Gap (3-11) BUN (6-23) mg/dl Creatinine (0.6-1.4) mg/dl Est Cr Clr Drug Dosing ml/min Est GFR ( Amer) ml/min Est GFR (Non-Af Amer) ml/min BUN/Creatinine Ratio (10-20) Glucose (70-99(Fasting)) mg/dl Lactate 1.1 (0.4-2.0) mmol/L Calcium (8.6-10.3) mg/dl Stl C. cayetanensis PCR Not Detected (NotDetected) Stool Rotavirus A PCR Not Detected (NotDetected) Stl Adenov F 40/41 PCR Not Detected (NotDetected) Stool Astrovirus (PCR) Not Detected (NotDetected) Stool Campylobacter PCR Not Detected (NotDetected) Stool Cryptosporidium PCR Not Detected (NotDetected) Stl E.coli Shiga Tox PCR Not Detected (NotDetected) Stl Enterotoxigenic E PCR Not Detected (NotDetected) Stool EPEC (PCR) Not Detected (NotDetected) Stool EAEC (PCR) Not Detected (NotDetected) Stl E. histolytica PCR Not Detected (NotDetected) Stool Giardia Lamblia PCR Not Detected (NotDetected) Stool Salmonella PCR Not Detected (NotDetected) Stool Sapovirus (PCR) Not Detected (NotDetected) Stl P. shigelloides PCR Not Detected (NotDetected) Stl Shigella/EIEC PCR Not Detected (NotDetected) St Y.enterocolitica PCR Not Detected (NotDetected) Stool Vibrio (PCR) Not Detected (NotDetected) Stl Vibrio cholerae PCR Not Detected (NotDetected) Stl Norovirus GI/GII PCR Not Detected (NotDetected) PG Care Time/CCT Total # of Minutes Spent Total Time Spent with Patient: Total time spent is greater than 50% in coordination of care (as documented) at patient's floor/unit and/or counseling patient: Coding Level of Care Code 87247 IN/OBS CONSULT LVL 4,60M Diagnoses BRBPR (bright red blood per rectum) K62.5
--- NOTE | 2023-10-25 13:05 | CT Scan Report ---
CT SCAN OF THE ABDOMEN AND PELVIS WITHOUT IV CONTRAST CLINICAL HISTORY: Generalized abdominal pain. COMPARISON STUDY: Abdominal CT dated 10/22/2023. TECHNIQUE: CT scan of the abdomen and pelvis is performed from the lung bases to the proximal femora. Images are reviewed in the axial, sagittal, and coronal planes. IV contrast was not administered for this examination. Note that the examination was performed in significantly suboptimal fashion withou t oral and IV contrast. A dose lowering technique was utilized adhering to the principles of ALARA. CT DOSE: 1624.51 mGy.cm FINDINGS: Lung bases: The heart is top normal in size and without pericardial effusion. There is coronary arter y atherosclerosis. There are small right and trace left pleural effusions with dependent consolidatio n. Liver: The unenhanced liver is normal in size, contour, and attenuation. There is no intrahepatic michelle iary ductal dilatation. Gallbladder: Hyperdense material within the gallbladder likely represents excreted contrast. Spleen: Normal in size and attenuation. Pancreas: Unremarkable. Adrenal glands: Thickening of the adrenal glands are previous. Kidneys: The unenhanced kidneys are normal in size and without hydronephrosis. The kidneys appear het erogeneous. There are no renal calculi identified. There is no evidence of contour deforming renal ma ss lesion. Abdominal vasculature: The abdominal aorta is normal in course and caliber. Bowel: There is a long segment of significantly thick-walled and edematous mid to distal small bowel. Intraloop fluid is observed. The upstream small bowel loops are distended measuring up to 4.7 cm in diameter. No pneumatosis intestinalis or portal venous gas is seen. The appendix is well-visualized and normal. Peritoneum: There is a small volume of upper abdominal and pelvic ascites. No intraperitoneal free ai r is seen. Hyperdensity throughout the superior mesenteric vein is consistent with extensive mesenter ic venous thrombus. There is associated mesenteric venous engorgement and mesenteric edema. There is a large fat-containing umbilical hernia. Lymphadenopathy: None. Pelvic viscera: The prostate gland is mildly enlarged and heterogeneous. The bladder is distended, an d the wall is mildly thickened/trabeculated indicating chronic outlet obstruction. Skeletal structures: No lytic or blastic lesions are seen. IMPRESSION: 1. Again seen is evidence of extensive mesenteric venous thrombosis, with engorgement of the mesenter ic veins and mesenteric edema. 2. Again seen is a long segment of markedly thick walled and edematous mid to distal small bowel. Thi s is consistent with a nonspecific enteritis, likely secondary to mesenteric venous ischemia. 3. There is increasing distention of the fluid-filled more proximal small bowel. This could represent a functional obstruction secondary to the degree of bowel wall edema or possibly ileus. 4. No intraperitoneal free air is identified. There is no pneumatosis intestinalis or portal venous g as. 5. There is interloop fluid and a small volume of abdominopelvic ascites. 6. Small right and trace left pleural effusions with dense bibasilar consolidation. This likely repre sents atelectasis and clinical correlation will be required. 7. Additional findings as above. ACT 112: Negative or not required by law. Electronically signed by: Juan Oh M.D. 10/25/2023 1:03 PM
--- NOTE | 2023-10-25 14:12 | Surgery Progress Note ---
Date of Service October 25, 2023 Assessment & Plan (1) Superior mesenteric vein thrombosis: Plan: Repeat CT images and results personally viewed and interpreted by myself There are still no overt signs of bowel ischemia or infarction Will continue to watch closely and if he worsens clinically will proceed with exploration Would continue heparin gtt as this is the primary treatment of his condition Will continue to follow Admission and Anticipated Discharge Date Admission Date: October 23, 2023 Subjective Pt seen and examined. Still with abdominal pain. Slightly improved. Afebrile. Has had some emesis and blood per rectum. Review of Systems Constitutional: no fever and no chills Physical Exam Constitutional: WD/WN, vitals as above Gastrointestinal (Abdomen): soft, mild distension lower abdominal TTP with some guarding Results & Data Vital Signs (Past 12 Hours) Vital Signs Temp Pulse Pulse Resp BP BP Pulse Ox 10/25/23 12:18 93 H 134/82 10/25/23 11:54 36.7 C 88 18 134/82 93 10/25/23 08:32 90 10/25/23 07:36 36.7 C 85 18 132/88 93 10/25/23 06:29 86 16 160/105 H 96 10/25/23 06:11 85 160/114 H 10/25/23 05:50 87 162/101 H 10/25/23 03:27 36.6 C 88 18 110/71 95 O2 Del Method O2 Flow Rate 10/25/23 12:18 10/25/23 11:54 Nasal Cannula 2.0 10/25/23 08:32 10/25/23 07:36 Nasal Cannula 3.0 10/25/23 06:29 Nasal Cannula 3 10/25/23 06:11 10/25/23 05:50 10/25/23 03:27 Nasal Cannula 3.0 PG Care Time/CCT Total # of Minutes Spent Total Time Spent with Patient: Total time spent is greater than 50% in coordination of care (as documented) at patient's floor/unit and/or counseling patient: Coding Level of Care Code 70105 SUB INP/OBS CARE 125MIN Diagnoses Superior mesenteric vein thrombosis K55.069
--- NOTE | 2023-10-25 15:14 | Hospitalist Progress Note ---
Date of Service October 25, 2023 Assessment & Plan (1) Superior mesenteric vein thrombosis: Plan: Abdominal pain/discomfort with nausea and diarrhea since Wednesday last Pain and bloating was worse yesterday Noted to have superior mesenteric vein thrombosis and nonocclusive thrombus in the splenic vein on CAT scan and thickening and edema of the several loops of small bowel in the right lower quadrant. Inflammatory bowel disease/infective enteritis needs to be ruled out Appreciate surgery input and recommendation Patient will be kept n.p.o., IV fluids will be administered, IV antibiotic has been given Stool culture and stool for C. 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 Advised to continue intravenous heparin which is needed for this kind of issues and is expected to improve but may take some time Stool test came back negative for any organism Will continue current antibiotic with Zosyn for possible nonspecific colitis/infectious colitis (2) Abdominal pain: Plan: Secondary to nonspecific colitis/enteritis CT scan showed thickening and edema of the small loops of the small bowel in the right lower quadrant Has had 2 bright blood per rectum prior to admission Did have another bouts of bright light blood per rectum this afternoon at around 2 PM Stool was sent for culture and C. difficile test Will ask GI to evaluate Increasing abdominal pain and distention-lactate has been normal, CRP remains very high at 25 and the white blood cell count went of high as well He has been on intravenous Zosyn for possible nonspecific ileitis Will get a repeat CT scan of the abdomen this afternoon Abdominal pain remains stable with continued pain medications (3) Hypertensive crisis: Plan: Secondary to mesenteric vein thrombosis Blood pressure has been running very high Has been receiving oral losartan Will start IV Lopressor 5 mg every 6 hourly. Will try Nitropaste if the pressure is not controlled and can try IV hydralazine Has history of hypertension-will monitor blood pressure Blood pressure remains on the upper side at 151/90 (4) BRBPR (bright red blood per rectum): Plan: Has had diarrhea yesterday with bright red blood per rectum Will check a stool for C. difficile and stool culture and ocult blood Has had another episode of bright red blood per rectum Will ask for GI to evaluate Has been getting PPI IV twice daily Appreciate GI input and recommendation Possible colonoscopy tomorrow (5) HLD (hyperlipidemia): Plan: Has been on statin (6) Acute thrombosis of splenic vein: Plan: As above Plan Has history of NAFLD Hyperglycemia-will check hemoglobin A1c-6.1 DVT prophylaxis. Heparin Full code Patient requesting updates providers. Ms. Joanne Carrion, contact #[phone]. Has been updating the regularly Admission and Anticipated Discharge Date Admission Date: October 23, 2023 Subjective 10/23/2023 The patient was seen and examined in ICU in presence of the He was admitted with abdominal pain, bloating, nausea, diarrhea and blood in the stool which has been going on since Wednesday Denies any fever and or chills Noted to have nonspecific enteritis with thrombosed superior mesenteric vein Still has abdominal pain and nausea which is worse with even taking medicine orally He will be kept n.p.o., IV fluid and IV pain medications will be given 10/24/2023 The patient was seen and examined in telemetry unit in presence of the He has been complaining of more abdominal pain and distention Denies any shortness of breath at rest, has nausea but no vomiting, no fever and no chills Just now he has had a bowel movement which was bloody 10/25/2023 The patient was seen and examined in telemetry unit in presence of the His condition has not improved There is increasing abdominal swelling and pain still seems to be increased Has nausea and vomiting Hiccup has been decreased Review of Systems Review of Systems: All systems reviewed and are unremarkable except as noted below Constitutional: Flushed facies Physical Exam Physical Exam: Lying in bed with acute distress secondary to abdominal discomfort Constitutional: well developed, well nourished, + ill appearing and + obese Eyes: PERRL, conjunctivae normal, anicteric sclerae ENMT: external ear and nose normal, oropharynx normal Neck: trachea midline, no thyromegaly Respiratory: no respiratory distress Auscultation: lungs clear to auscultation bilaterally and + diminished lung sounds Cardiovascular: Rate/Rhythm: regular rate and regular rhythm; not tachycardic Heart Sounds: normal S1 and normal S2; no murmur Extremities: no edema Gastrointestinal (Abdomen): Inspection/Auscultation: + abdomen distended; + abnormal bowel sounds (Decreased) Percussion/Palpation: + abdomen tender (All over especially your right quadrants) and abdomen soft Musculoskeletal: No acute arthritis involving any of the joints Neurologic: normal touch/pain/proprioception and moves all extremities; no focal motor deficits Lymphatic: no cervical or axillary lymphadenopathy Results & Data Results & Data Vital Signs (Past 12 Hours) Vital Signs Temp Pulse Pulse Resp BP BP Pulse Ox 10/25/23 14:36 77 10/25/23 12:33 86 132/78 10/25/23 12:18 93 H 134/82 10/25/23 11:54 36.7 C 88 18 134/82 93 10/25/23 08:32 90 10/25/23 07:36 36.7 C 85 18 132/88 93 10/25/23 06:29 86 16 160/105 H 96 10/25/23 06:11 85 160/114 H 10/25/23 05:50 87 162/101 H 10/25/23 03:27 36.6 C 88 18 110/71 95 O2 Del Method O2 Flow Rate 10/25/23 14:36 10/25/23 12:33 10/25/23 12:18 10/25/23 11:54 Nasal Cannula 2.0 10/25/23 08:32 10/25/23 07:36 Nasal Cannula 3.0 10/25/23 06:29 Nasal Cannula 3 10/25/23 06:11 10/25/23 05:50 10/25/23 03:27 Nasal Cannula 3.0 Laboratory Results Short CBC 10/25/23 Range/Units 05:31 WBC 15.12 H (4.8-10.8) K/ul Hgb 14.4 (14.0-18.0) g/dl Hct 45.4 (42.0-52.0) % Plt Count 254 (130-400) K/uL BMP 10/25/23 05:31 Sodium 136 Potassium 4.1 Chloride 100 Carbon Dioxide 31 BUN 22 Creatinine 0.96 Glucose 100 H Calcium 8.0 L Medications Administered Current Inpatient Medications Acetaminophen (Acetaminophen 500 Mg Tab) 500 mg PO Q6H PRN PRN Reason: fever/pain Stop: 11/22/23 00:10 Last Admin: 10/23/23 08:44 Dose: 500 mg Hydromorphone HCl (Hydromorphone Inj 1 Mg/Ml Syringe) 1 mg IV Q4H PRN PRN Reason: Pain Stop: 11/06/23 00:10 Last Admin: 10/25/23 11:27 Dose: 1 mg Heparin Sodium/Dextrose (Heparin Sodium/Dextrose) 25,000 units in 500 mls @ 0 mls/hr IV .Q0M [facility]; Protocol Stop: 11/21/23 23:44 Last Admin: 10/25/23 14:18 Dose: Not Given Promethazine HCl 12.5 mg/ (Sodium Chloride) 50.5 mls @ 202 mls/hr IV Q6H PRN PRN Reason: Nausea And Vomiting Stop: 11/22/23 00:10 Last Infusion: 10/25/23 12:32 Dose: Infused Piperacillin Sod/Tazobactam (Sod 4.5 gm/ Dextrose) 100 mls @ 25 mls/hr IV Q8H [facility]; Protocol Stop: 11/02/23 03:59 Last Admin: 10/25/23 12:19 Dose: 25 mls/hr Sodium Chloride (Nss) 1,000 mls @ 80 mls/hr IV .[id number] [facility] Stop: 10/25/23 23:29 Last Admin: 10/25/23 02:52 Dose: 80 mls/hr Pantoprazole Sodium 40 mg/ (Syringe) 10 mls @ 5 mls/min IV BID [facility] Stop: 11/23/23 20:59 Last Admin: 10/25/23 08:53 Dose: 5 mls/min Lorazepam 0.25 mg/ Syringe 0.25 mls @ 2 mls/min IV Q6H PRN PRN Reason: Anxiety Stop: 11/23/23 17:44 Lorazepam (Lorazepam 0.5 Mg Tab) 0.5 mg PO TID PRN PRN Reason: Anxiety Stop: 11/22/23 00:10 Losartan Potassium (Losartan Potassium 25 Mg Tab) 75 mg PO QAM [facility] Stop: 11/23/23 08:59 Last Admin: 10/25/23 12:25 Dose: Not Given Metoprolol Tartrate (Metoprolol Tartrate 25 Mg Tab) 25 mg PO BID [facility] Stop: 11/22/23 16:59 Last Admin: 10/23/23 17:51 Dose: Not Given Metoprolol Tartrate (Metoprolol Tartrate 1 Mg/Ml Vial) 5 mg IV Q6 [facility] Stop: 11/22/23 17:59 Last Admin: 10/25/23 12:18 Dose: 5 mg Multivitamins (Multivitamin Tab) 1 tab PO DAILY [facility] Stop: 11/22/23 08:59 Last Admin: 10/25/23 08:51 Dose: Not Given Nitroglycerin (Nitroglycerin 2% Ointment 30gm Tube) 0.5 inch EXT Q6H [facility] Stop: 11/23/23 06:29 Last Admin: 10/25/23 12:26 Dose: 0.5 inch Oxycodone HCl (Oxycodone Hcl Ir 5 Mg Tab (Immediate Release)) 5 - 10 mg PO QID PRN PRN Reason: Pain Stop: 11/06/23 00:10 Last Admin: 10/23/23 12:32 Dose: 10 mg Rosuvastatin Calcium (Rosuvastatin Calcium 10 Mg Tab) 10 mg PO DAILY [facility] Stop: 11/22/23 08:59 Last Admin: 10/25/23 12:25 Dose: Not Given (2) Abdominal pain Abdominal location: unspecified location Qualified Code(s): R10.9 - Unspecified abdominal pain
[2023-10-25 19:42] VITALS: O2SAT 95
--- NOTE | 2023-10-25 20:24 | Discharge Summary ---
Date of Service October 25, 2023 Admission HPI Per Admitting Provider History obtained from patient, family, and records. Medical history significant for hypertension, hyperlipidemia, NAFLD, HODAN on CPAP. 1 week history of alternating diarrhea, constipation symptoms. No fever, no chills. Not sure about sick contacts. No recent antibiotic Rx except for doxycycline course for tickborne infection 3 months ago. Intermittent achy central abdominal pain with days where he would actually be pain-free. Last night, patient experienced recurrence of abdominal discomfort followed by bloody BM. No headache, no chest pain, no SOB. No previous episodes. CT abdomen pelvis showed 1. There is wall thickening and mild edema involving several loops of small bowel in the right lower quadrant. There is edema surrounding an acutely the thrombosed superior mesenteric vein. 2. Small amount nonocclusive thrombus in the splenic vein. The portal vein is widely patent. IV Zosyn and heparin initiated at the ER. Highest SBP of 210s documented at the ER. 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 Principal Diagnosis Acute Superior Mesenteric Vein thrombosis,Bowel Wall thickening,Rectal bleed,HTN Discharge Exam Lying in bed with acute distress secondary to abdominal discomfort Constitutional well developed, well nourished, + ill appearing and + obese Eyes PERRL, conjunctivae normal, anicteric sclerae ENMT external ear and nose normal, oropharynx normal Neck trachea midline, no thyromegaly Respiratory no respiratory distress Auscultation: lungs clear to auscultation bilaterally and + diminished lung sounds Cardiovascular Rate/Rhythm: regular rate and regular rhythm; not tachycardic Heart Sounds: normal S1 and normal S2; no murmur Extremities: no edema Gastrointestinal (Abdomen) Inspection/Auscultation: + abdomen distended; + abnormal bowel sounds (Decreased) Percussion/Palpation: + abdomen tender (All over especially your right quadrants) and abdomen soft Neurologic normal touch/pain/proprioception and moves all extremities; no focal motor deficits Lymphatic no cervical or axillary lymphadenopathy Discharge Data Allergies Allergy/AdvReac Type Severity Reaction Status Date / Time No Known Allergies Allergy Verified 10/22/23 23:32 Consultations 10/22/23 23:06 ED Decision to Admit Stat 10/23/23 01:34 Consult General Surgery Stat 10/24/23 13:57 Consult Gastroenterology Routine 10/25/23 18:23 Radiology Transfer Of Images Stat Procedures Performed Operation Date: 10/26/23 16:30 <No data on this case meets the specified criteria> Ordered Studies 10/22/23 22:05 CT abd pelvis IV con only Stat 10/25/23 08:29 CT Abd and Pelvis [CT abd pelvis wo con] Urgent Hospital Course (1) Superior mesenteric vein thrombosis: Abdominal pain/discomfort with nausea and diarrhea since Wednesday last Pain and bloating was worse yesterday Noted to have superior mesenteric vein thrombosis and nonocclusive thrombus in the splenic vein on CAT scan and thickening and edema of the several loops of small bowel in the right lower quadrant. Inflammatory bowel disease/infective enteritis needs to be ruled out Appreciate surgery input and recommendation Patient will be kept n.p.o., IV fluids will be administered, IV antibiotic has been given Stool culture and stool for C. 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 with the surgeon and road roller operator Advised to continue intravenous heparin which is needed for this kind of issues and is expected to improve but may take some time Stool test came back negative for any organism Will continue current antibiotic with Zosyn for possible nonspecific colitis/infectious colitis Appreciate GI input and recommendation. Condition has been deterioration-Chance of bowel Ischemia and other complications are high. Thrombolysis and or Thrombectomy can be helpful. Discussed with the IR specialist Dr Hui and Surgeon DR Arroyo and the patient was transferred to [facility] . Discussed with the and the Patient. DR Devin Lin (2) Abdominal pain: Secondary to nonspecific colitis/enteritis CT scan showed thickening and edema of the small loops of the small bowel in the right lower quadrant Has had 2 bright blood per rectum prior to admission Did have another bouts of bright light blood per rectum this afternoon at around 2 PM Stool was sent for culture and C. difficile test Will ask GI to evaluate Increasing abdominal pain and distention-lactate has been normal, CRP remains very high at 25 and the white blood cell count went of high as well He has been on intravenous Zosyn for possible nonspecific ileitis Will get a repeat CT scan of the abdomen this afternoon Abdominal pain remains stable with continued pain medications (3) Hypertensive crisis: Secondary to mesenteric vein thrombosis Blood pressure has been running very high Has been receiving oral losartan Will start IV Lopressor 5 mg every 6 hourly. Will try Nitropaste if the pressure is not controlled and can try IV hydralazine Has history of hypertension-will monitor blood pressure Blood pressure remains on the upper side at 151/90 (4) BRBPR (bright red blood per rectum): Has had diarrhea yesterday with bright red blood per rectum Will check a stool for C. difficile and stool culture and ocult blood Has had another episode of bright red blood per rectum Will ask for GI to evaluate Has been getting PPI IV twice daily Appreciate GI input and recommendation Possible colonoscopy tomorrow (5) HLD (hyperlipidemia): Has been on statin (6) Acute thrombosis of splenic vein: As above Plan Has history of NAFLD Hyperglycemia-will check hemoglobin A1c-6.1 DVT prophylaxis. Heparin Full code Patient requesting updates providers. Ms. Joanne Carrion, contact #[phone]. Has been updating the regularly Total Time Total Time Spent Total Time Spent (In Minutes): 45 minutes Discharge Plan Discharge Items Patient Disposition: Transfer Acute Care Hospital Reason For Visit: HTN CRISIS, COLITIS Discharge Diagnosis: Acute Superior Mesenteric Vein thrombosis,Bowel Wall thickening,Rectal bleed,HTN Condition on Discharge: Serious Activity: As commented below Activity Comment: Transferred to [facility] Non-emergency contact: Primary Care Provider Call non-emergency contact if: you have any medication questions and your symptoms worsen Follow-up/Referrals: Julius Lowry MD [Primary Care Provider] - (Please make an appointment with your PCP within 7 days following discharge) Diet: Other - See Diet Comment Diet Comment: NPO Ernie Attending Provider Instructions: Transferred to [facility] Following In-patient medications were continued Medications Administered Current Inpatient Medications Acetaminophen (Acetaminophen 500 Mg Tab) 500 mg PO Q6H PRN PRN Reason: fever/pain Stop: 11/22/23 00:10 Last Admin: 10/23/23 08:44 Dose: 500 mg Hydromorphone HCl (Hydromorphone Inj 1 Mg/Ml Syringe) 1 mg IV Q4H PRN PRN Reason: Pain Stop: 11/06/23 00:10 Last Admin: 10/25/23 11:27 Dose: 1 mg Heparin Sodium/Dextrose (Heparin Sodium/Dextrose) 25,000 units in 500 mls @ 0 mls/hr IV .Q0M [facility]; Protocol Stop: 11/21/23 23:44 Last Admin: 10/25/23 14:18 Dose: Not Given Promethazine HCl 12.5 mg/ (Sodium Chloride) 50.5 mls @ 202 mls/hr IV Q6H PRN PRN Reason: Nausea And Vomiting Stop: 11/22/23 00:10 Last Infusion: 10/25/23 12:32 Dose: Infused Piperacillin Sod/Tazobactam (Sod 4.5 gm/ Dextrose) 100 mls @ 25 mls/hr IV Q8H [facility]; Protocol Stop: 11/02/23 03:59 Last Admin: 10/25/23 12:19 Dose: 25 mls/hr Sodium Chloride (Nss) 1,000 mls @ 80 mls/hr IV .[id number] [facility] Stop: 10/25/23 23:29 Last Admin: 10/25/23 02:52 Dose: 80 mls/hr Pantoprazole Sodium 40 mg/ (Syringe) 10 mls @ 5 mls/min IV BID [facility] Stop: 11/23/23 20:59 Last Admin: 10/25/23 08:53 Dose: 5 mls/min Lorazepam 0.25 mg/ Syringe 0.25 mls @ 2 mls/min IV Q6H PRN PRN Reason: Anxiety Stop: 11/23/23 17:44 Lorazepam (Lorazepam 0.5 Mg Tab) 0.5 mg PO TID PRN PRN Reason: Anxiety Stop: 11/22/23 00:10 Losartan Potassium (Losartan Potassium 25 Mg Tab) 75 mg PO QAM [facility] Stop: 11/23/23 08:59 Last Admin: 10/25/23 12:25 Dose: Not Given Metoprolol Tartrate (Metoprolol Tartrate 25 Mg Tab) 25 mg PO BID [facility] Stop: 11/22/23 16:59 Last Admin: 10/23/23 17:51 Dose: Not Given Metoprolol Tartrate (Metoprolol Tartrate 1 Mg/Ml Vial) 5 mg IV Q6 [facility] Stop: 11/22/23 17:59 Last Admin: 10/25/23 12:18 Dose: 5 mg Multivitamins (Multivitamin Tab) 1 tab PO DAILY [facility] Stop: 07/22/24 08:59 Last Admin: 10/25/23 08:51 Dose: Not Given Nitroglycerin (Nitroglycerin 2% Ointment 30gm Tube) 0.5 inch EXT Q6H [facility] Stop: 11/23/23 06:29 Last Admin: 10/25/23 12:26 Dose: 0.5 inch Oxycodone HCl (Oxycodone Hcl Ir 5 Mg Tab (Immediate Release)) 5 - 10 mg PO QID PRN PRN Reason: Pain Stop: 11/06/23 00:10 Last Admin: 10/23/23 12:32 Dose: 10 mg Rosuvastatin Calcium (Rosuvastatin Calcium 10 Mg Tab) 10 mg PO DAILY [facility] Stop: 11/22/23 08:59 Last Admin: 10/25/23 12:25 Dose: Not Given (2) Abdominal pain Abdominal location: unspecified location Qualified Code(s): R10.9 - Unspecified abdominal pain Pending Studies at Discharge: No Stand-Alone Forms: [facility] Skilled Items Patient informed of condition?: Yes DNR: No Discharge Level of Care: Other Communicable Disease: No Discharge Prognosis: Deteriorating Lines: Peripheral IV Urinary Catheter: Yes Medications and DC Order Prescriptions: Continued candesartan 8 mg tablet 8 mg PO QAM rosuvastatin 10 mg tablet 10 mg PO DAILY multivitamin Tablet 1 tab PO DAILY aspirin 81 mg Tablet,Delayed Release (Dr/Ec) 81 mg PO DAILY acetaminophen [Tylenol Extra Strength] 500 mg Tablet 500 mg PO Q8H PRN (Reason: PAIN/FEVER) Discharge Orders: Discharge Order (Routine); Ordered 10/25/23 Ordered By: Komal Barragan/Other Patient Handouts: Prediabetes, 5 Steps for Eating Healthier Admission Data Admit Date/Time: 10/23/23 00:09 Attending Provider: Komal Lin Admit Provider: Morris Woods Primary Care Provider: Julius Lowry Other Providers: Morris Woods; Rangel Fall; Jude Davis; Claudio Rodriguez; Merna Sawant; Constanza Byrd; Kandi Jacobsen; Karen Keith; Elsa Keller; Shoaib Meza; Justina Geiger; Meli Jones; Troy Camarillo; Nicole Dean; Jodi Francisco; Rin Ramirez; Madeline Bridges; Camilla Villalpando; Nj Felix; Toni Altman; Nela Unger; Eleuterio Jorgensen Jr; Guy Olguin; Hans Estrada; Saleem Peres
[2023-10-25] MEDS: hydrALAZINE HCL 20 MG/ML VIAL IV ONE (20:33)
[2023-10-25 22:20] VITALS: BP 140/92; TEMP 98.4
[2023-10-25 23:08] VITALS: PULSE 88
[2023-10-26] LABS: Hematocrit (blood only) 44.8 % (42.0-52.0); Hemoglobin 14.4 g/dl (14.0-18.0)
== END 2023-10-26 00:07 | disposition short-term general hospital (02) | DRG 394 ==
LOC: ED 19:18 → EDINP 10-23 00:09 → 2E 10-23 14:40